=== PATIENT | male | born 1960 | race Caucasian/White ===

== ENCOUNTER 2020-05-22 14:14 | Outpatient (CLI) | payer SELFPAY | END 2020-05-22 14:15 | disposition home or self-care (01) | LOC: COV 14:14 | PROVIDERS: ATTEND Family Medicine | DX: R53.83 Other fatigue (principal); R68.83 Chills (without fever); R19.7 Diarrhea, unspecified; R11.0 Nausea; Z20.828 Contact with and (suspected) exposure to other viral communicable diseases ==

== ENCOUNTER 2020-10-17 13:44 | Inpatient (IN) | payer MEDICAID ==
[2020-10-17 14:35] LABS: BASOPHILS # (AUTO) 0.1 10^3/uL (0.0-0.1); BASOPHILS % (AUTO) 0.4 %; EOSINOPHILS # (AUTO) 0.1 10^3/uL (0.0-0.7); EOSINOPHILS % (AUTO) 0.4 %; HGB - HEMOGLOBIN 11.7 g/dL (14.0-18.0); LYMPHOCYTES # (AUTO) 1.2 10^3/uL (1.5-3.5); LYMPHOCYTES % (AUTO) 7.4 %; MEAN CORPUSCULAR HEMOGLOBIN 36.6 pg (27.0-31.0); MEAN CORPUSCULAR HGB CONC 32.6 g/dL (32.0-36.0); MEAN CORPUSCULAR VOLUME 112.2 fL (80.0-94.0); MEAN PLATELET VOLUME 11.5 fL (7.4-11.4); MONOCYTES # (AUTO) 1.5 10^3/uL (0.0-1.0); MONOCYTES % (AUTO) 9.2 %; NEUTROPHILS # (AUTO) 13.1 10^3/uL (1.5-6.6); NEUTROPHILS % (AUTO) 81.9 %; PLT - PLATELET COUNT 263 10^3/uL (130-450); RED CELL DISTRIBUTION WIDTH 19.4 % (12.0-15.0)
[2020-10-17 14:50] LABS: PLATELET ESTIMATE, MANUAL NORMAL (130-450,000) (NORMAL); PLATELET MORPHOLOGY NORMAL APPEARANCE (NORMAL)
[2020-10-17 14:54] LABS: ALBUMIN 2.2 g/dL (3.2-5.5); ALBUMIN/GLOBULIN RATIO 0.4 (1.0-2.2); BILIRUBIN,TOTAL 10.8 mg/dL (0.2-1.0); CREATININE 0.6 mg/dL (0.6-1.2); TOTAL PROTEIN 7.1 g/dL (6.7-8.2)
[2020-10-17 14:56] LABS: INR 1.6 (0.8-1.2)
[2020-10-17 15:04] LABS: CALCIUM 12.6 mg/dL (8.5-10.3)
[2020-10-17] MEDS ORDERED: IOVERSOL 320 100 ML VIAL IVP ONE ×2 (15:38→15:52)
--- NOTE | 2020-10-17 16:19 | ED Physician Documentation ---
History of Present Illness - Stated complaint Stated Complaint: LEG SWELLING/WEAKNESS - Chief complaint Chief Complaint: General - History obtained from History obtained from: Patient - History of Present Illness Timing: How many weeks ago (4) - Additonal information Additional information: 60-year-old male indicates that he stopped drinking about a month ago and shortly after he began to develop some swelling to his abdomen swelling in his legs and jaundice. His family has convinced him to come to the department for evaluation.He indicates that he drank only a small amount and insisted his last alcohol intake was 2 days ago when it was 2 ounces.He does not usually go to the doctor has not had medications or surgeries.He has noted a firm mass in his ab domen but is nontender. He feels like it is another rib that is growing in place. Review of Systems Constitutional: denies: Fever, Chills, Myalgias Eyes: denies: Decreased vision Ears: denies: Ear pain Nose: denies: Rhinorrhea / runny nose, Congestion Throat: denies: Sore throat Cardiac: denies: Chest pain / pressure, Palpitations Respiratory: denies: Dyspnea, Cough GI: reports: Abdominal Swelling. denies: Constipation, Diarrhea : denies: Dysuria, Frequency Skin: denies: Rash Musculoskeletal: reports: Extremity swelling. denies: Neck pain, Back pain, Extremity pain Neurologic: denies: Generalized weakness, Focal weakness, Numbness PD PAST MEDICAL HISTORY - Past Medical History Past Medical History: Yes Cardiovascular: None Respiratory: Asthma Neuro: None Endocrine/Autoimmune: None GI: None : None HEENT: None Psych: None Musculoskeletal: None Derm: None - Past Surgical History Past Surgical History: No - Allergies Allergies/Adverse Reactions: Allergies Allergy/AdvReac Type Severity Reaction Status Date / Time No Known Drug Allergies Allergy Verified 10/17/20 13:48 - Social History Does the pt smoke?: No Smoking Status: Never smoker Does the pt drink ETOH?: Yes Does the pt have substance abuse?: No - Immunizations Immunizations are current?: Yes - POLST Patient has POLST: No PD ED PE NORMAL - Vitals Vital signs reviewed: Yes (normal ) - General General: Alert and oriented X 3, No acute distress, Well developed/nourished - HEENT HEENT: Atraumatic, PERRL, EOMI, Other (obvious scleral icterus) - Neck Neck: Supple, no meningeal sign, No bony TTP - Cardiac Cardiac: RRR, No murmur - Respiratory Respiratory: No respiratory distress, Clear bilaterally - Abdomen Abdomen: Normal bowel sounds, Soft, Non tender, Other (There is a firm palpable mass more than 1 handbreadth below the costal margin on the right side it really does feel like an extra rib there but obviously is the patient's firm liver.There is ascites present there is not a caput present.) - Back Back: No spinal TTP, Other (There is some tenderness to the right flank ) - Derm Derm: Normal color, Warm and dry, No rash - Extremities Extremities: No deformity, Other (doughy pitting edema is present bilaterally ) - Neuro Neuro: Alert and oriented X 3, director of recruitment 2-12 intact, No motor deficit, No sensory deficit, Normal speech Eye Opening: Spontaneous Motor: Obeys Commands Verbal: Oriented GCS Score: 15 - Psych Psych: Normal mood, Normal affect Results - Vitals Vitals: Vital Signs - 24 hr 10/17/20 10/17/20 10/17/20 13:48 14:16 16:11 Temperature 36.4 C L 36.6 C 36.7 C Heart Rate 100 94 Respiratory 18 21 Rate Blood Pressure 126/75 109/66 O2 Saturation 99 98 10/17/20 10/17/20 10/17/20 17:20 17:55 18:42 Temperature Heart Rate 96 93 91 Respiratory 16 18 18 Rate Blood Pressure 104/74 123/77 106/74 O2 Saturation 98 96 98 Oxygen O2 Source Room air - Labs Labs: Laboratory Tests 10/17/20 10/17/20 10/17/20 13:44 14:20 14:20 WBC 16.0 H RBC 3.20 L Hgb 11.7 L Hct 35.9 L MCV 112.2 H MCH 36.6 H MCHC 32.6 RDW 19.4 H Plt Count 263 MPV 11.5 H Neut # (Auto) 13.1 H Lymph # (Auto) 1.2 L Winkler # (Auto) 1.5 H Eos # (Auto) 0.1 Baso # (Auto) 0.1 Absolute Nucleated RBC 0.00 Nucleated RBC % 0.0 Manual Slide Review Indicated Platelet Estimate NORMAL (130-450,000) Platelet Morphology NORMAL APPEARANCE RBC Morph Micro Appear 1+ TARGET CELLS PT INR Sodium 132 L Potassium 4.0 Chloride 98 L Carbon Dioxide 24 Anion Gap 10.0 BUN 21 H Creatinine 0.6 Estimated GFR (MDRD) 137 Glucose 100 Calcium 12.6 H* Total Bilirubin 10.8 H AST 171 H ALT 94 H Alkaline Phosphatase 352 H Ammonia 41.3 H Total Protein 7.1 Albumin 2.2 L Globulin 4.9 H Albumin/Globulin Ratio 0.4 L Lipase 20 L Urine Color Urine Clarity Urine pH Ur Specific [place] Urine Protein Urine Glucose (UA) Urine Ketones Urine Occult Blood Urine Nitrite Urine Bilirubin Urine Urobilinogen Ur Leukocyte Esterase Ur Microscopic Review Urine Culture Comments Ethyl Alcohol 10/17/20 10/17/20 10/17/20 14:20 14:20 14:20 WBC RBC Hgb Hct MCV MCH MCHC RDW Plt Count MPV Neut # (Auto) Lymph # (Auto) Winkler # (Auto) Eos # (Auto) Baso # (Auto) Absolute Nucleated RBC Nucleated RBC % Manual Slide Review Platelet Estimate Platelet Morphology RBC Morph Micro Appear PT 17.0 H INR 1.6 H Sodium Potassium Chloride Carbon Dioxide Anion Gap BUN Creatinine Estimated GFR (MDRD) Glucose Calcium Total Bilirubin AST ALT Alkaline Phosphatase Ammonia Total Protein Albumin Globulin Albumin/Globulin Ratio Lipase Urine Color DARK YELLOW Urine Clarity CLEAR Urine pH 5.5 Ur Specific [place] 1.010 Urine Protein NEGATIVE Urine Glucose (UA) NEGATIVE Urine Ketones NEGATIVE Urine Occult Blood NEGATIVE Urine Nitrite NEGATIVE Urine Bilirubin LARGE H Urine Urobilinogen 0.2 (NORMAL) Ur Leukocyte Esterase NEGATIVE Ur Microscopic Review NOT INDICATED Urine Culture Comments NOT INDICATED Ethyl Alcohol < 5.0 - Rads (name of study) CT ab pel with Radiology: Final report received, EMP read indepedently, See rad report PD MEDICAL DECISION MAKING - ED course Complexity details: reviewed results, re-evaluated patient, considered differential, d/w patient ED course: 60-year-old male presents with jaundice abdominal swelling and lower extremity edema. We initially assumed this was related to alcoholic cirrhosis. The patient's drinking history is not consistent with cirrhosis. 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 There is marked heterogeneity to the liver and compression of the inferior vena cava and no evidence of excessive pressure to the spleen or varices. His calcium is elevated at 12.6 and he will need hydration to improve this. In retrospect the patient indicates he has been having some problem with defecation and urination for more than a year. Dr. Christiano Dowell is consulted in the case and will except the patient for hydration and ultimate disposition. Oncology at [facility] in [place] is consulted in the case. Dr. Forbes recommends trying to obtain a tissue specimen and a follow-up with the MAC clinic here at [facility]. He also recommended early involvement of palliative care. He did indicate there is little that would be done at [place] if he was transferred there would be any different than what we would do here. He does not at this point need a biliary stent and he does not need therapeutic paracentesis. Departure - Departure Disposition: ED Place in Observation Clinical Impression: Hypercalcemia of malignancy, Dehydration, Rectal carcinoma, Liver masses Condition: Fair
--- NOTE | 2020-10-17 16:28 | CT Report ---
PROCEDURE: Abdomen/Pelvis W INDICATIONS: acites, large firm liver in yellow person CONTRAST: IV CONTRAST: Optiray 320 ml: 100 PO CONTRAST: *NO PO CONTRAST TECHNIQUE: After the administration of nonionic contrast, 5 mm thick sections acquired from the diaphragms to th e symphysis. 5 mm thick coronal and sagittal reformats were acquired. For radiation dose reduction, the following was used: automated exposure control, adjustment of mA and/or kV according to patient size. COMPARISON: None. FINDINGS: Image quality: Excellent. ABDOMEN: Lung bases: Lung bases are abnormal, with mild basilar atelectasis on the right associated with asym metric mild elevation of the right hemidiaphragm. There are, however, multiple pulmonary nodules pres ent suggestive of metastatic disease ranging in size from 3 mm to 1.1 cm. At least 8 nodules are pres ent.. Heart size is normal. Solid organs: Liver is enlarged in size measuring almost 25 cm craniocaudad. It is prominently abnor mal in enhancement with scattered areas of malignant appearing low attenuation with mass effect, scat tered within all hepatic segments, the largest which is located within the right hepatic lobe measuri ng up to. Gallbladder is compressed, but shows no definite acute disease. 11 cm in maximal dimension . Biliary system is non dilated. Pancreas enhances normally. No adrenal nodules. Kidneys demonstr ate normal size and enhancement, without hydronephrosis. The spleen is not enlarged. Peritoneum and bowel: Bowel loops demonstrate normal wall thickness and caliber. No free air. The re is moderate ascites, intraperitoneal mild enhancement and thickening. The appearance raises concer n for peritoneal carcinomatosis. Anasarca however could produce a similar appearance and no definite discrete peritoneal enhancing mass is found. Nodes and vessels: No retroperitoneal or mesenteric adenopathy by size criteria. Aorta and inferior vena cava are normal in size. Miscellaneous: No ventral hernias. PELVIS: Genitourinary: Bladder wall thickness is normal. Miscellaneous: No inguinal hernias or adenopathy. There is abnormal rectal wall thickening, concentr ically just above the anus and then eccentrically along the left lateral and posterolateral rectal wa ll, over a craniocaudad length of approximately 4 cm, with the maximal AP and transverse dimensions t hickness of rectal wall thickening up to 2 cm. Of the eccentric involvement is best seen on CT series 3 image 98. More inferiorly on image 100 a more concentric involvement appears present. Normal recta l wall thickness can be seen on image 91, and above. The area of rectal wall thickening is abnormally hyperenhancing. Bones: No suspicious bony lesions. No vertebral body compression fractures. IMPRESSION: 1. Pulmonary nodules ranging in size from 3 mm to 1. One centimeters are present at the small portion of the lung bases included on this study, highly suspicious for representing metastatic disease. 2. Extensive hepatic metastatic disease is suspected, with the dominant mass in the right hepatic lob e measuring up to 11 cm, but there is also multifocal low-attenuation, heterogeneous, scattered throu ghout the liver parenchyma elsewhere. Hepatomegaly is present as a result, but the splenomegaly that would be expected in the setting of cirrhosis and extensive hepatoma is not present. Therefore hepati c metastatic disease is considered most likely the cause of this appearance. 3. There is eccentric hyperenhancing thickening of the rectal wall inferiorly and its middle third, a nd then above that level the rectal wall thickness and sigmoid bowel thickness appears normal. Primar y rectal carcinoma is likely present inferiorly within the posterior and left lateral wall and possib ly concentric just above the anal level. No adjacent adenopathy found. 4. Ascites is present, possible generalized peritoneal carcinomatosis. However, hepatic insufficiency and anasarca could produce the increased radiodensity along the peritoneal margins discussed above. Definite omental thickening is not seen. Reviewed by: iMke Hoyos MD on 10/17/2020 4:27 PM PST Approved by: Mike Hoyos MD on 10/17/2020 4:27 PM PST Station ID: [id number]
[2020-10-17 17:28] LABS: GLUCOSE, URINE (UA) NEGATIVE (NEGATIVE); KETONES,URINE (UA) NEGATIVE (NEGATIVE); LEUKOCYTE ESTERASE, URINE NEGATIVE (NEGATIVE); NITRITE,URINE NEGATIVE (NEGATIVE); OCCULT BLOOD,URINE NEGATIVE (NEGATIVE); PH,URINE 5.5 PH (5.0-7.5); PROTEIN,URINE NEGATIVE (NEGATIVE); UROBILINOGEN,URINE 0.2 (NORMAL) E.U./dL (NORMAL)
[2020-10-17 17:33] LABS: BILIRUBIN,URINE LARGE (NEGATIVE); CLARITY,URINE CLEAR (CLEAR); ICTOTEST,URINE POSITIVE
[2020-10-17] MEDS ORDERED: SODIUM CHLORIDE 0.9% 1,000 ML IV STA (17:36)
[2020-10-17] MEDS ORDERED: KETOROLAC 30 MG/ML VIAL IVP STA (17:41)
[2020-10-17] MEDS ORDERED: ONDANSETRON ODT 4 MG TABLET TL PRN (18:22)
--- NOTE | 2020-10-17 19:27 | HISTORY & PHYSICAL EXAMINATION ---
Chief Complaint - Chief Complaint Chief Complaint: Jaundice, weakness, lower extremity edema, abdominal pain History of Present Illness - Admitted From Admitted From:: [facility] ED - History Obtained From Records Reviewed: yes History obtained from: patient - History of Present Illness HPI Comment/Other: Patient is a 60-year-old male with medical history significant for asthma only who presented to the ED at the request of a sibling because it was noted that he has been jaundiced for the past 2 weeks. Upon presentation he also complained o f increased weakness, leg swelling and abdominal pain especially on the right side. He also reports weight loss but is unable to quantify or give a duration. He reports a history of night sweats 2 months ago. He has not been feeling well for the past year and has also experienced difficulty with bowel movements. Work-up in the ED included a CT of the abdomen pelvis which showed: Pulmonary nodules ranging in size from 3mm to 1 cm and were highly suspicious for metastatic disease. There was extensive hepatic metastasis suspected with a dominant mass in the right hepatic lobe measuring up to 11 cm. There was also multifocal low- attenuation, heterogeneous, scattered throughout the liver parenchyma. Hepatomegaly was also noted. There is eccentric hyperenhancing thickening of the rectal wall inferiorly and its middle third. Primary rectal carcinoma was suspected. Ascites was present as well as possible generalized peritoneal carcinomatosis. Furthermore the patient was noted to have a calcium level of 12.6, Total bilirubin of 10.8 and WBC of 16. At bedside the patient was resting comfortably but appears very weak. He denies chest pain but reports some dyspnea and abdominal pain. He mainly indicates pain in the right upper quadrant and epigastric area. He reports nausea but no vomiting he denies fever or chills. He has significant lower extremity edema and is significantly jaundiced. Patient was presented for admission primarily to address his hypercalcemia. History - Past Medical History Cardiovascular: reports: None Respiratory: reports: Asthma Neuro: reports: None Endocrine/Autoimmune: reports: None GI: reports: None : reports: None HEENT: reports: None Psych: reports: None Musculoskeletal: reports: None Derm: reports: None MRSA Hx?: No - Past Surgical History HEENT: reports: Other (right ear. Unspecified. During infancy) - Family & Social History Family History Comment/Other: His mother from colon cancer. His father had history of pulmonary fibrosis Social History Notes: Lives at home with his brother. His sister lives nearby on the same property. He has a history 2 packs/day x 15 years. However he quit smoking. He drinks whiskey daily and also uses marijuana - POLST Patient has POLST: No POLST Status: Full Code Meds/Allgy - Allergies Allergies/Adverse Reactions: Allergies Allergy/AdvReac Type Severity Reaction Status Date / Time No Known Drug Allergies Allergy Verified 10/17/20 13:48 Review of Systems - Constitutional Constitutional: reports: Fatigue, Weakness, Night sweats, Weight loss. denies: Fever, Chills - Eyes Eyes: denies: Pain, Dipolpia - Ears, Nose & Throat Ears, Nose & Throat: denies: Ear pain, Vertigo - Cardiovascular Cariovascular: reports: Edema. denies: Irregular heart rate, Palpitations, Chest pain, Lightheadedness, Syncope - Respiratory Respiratory: reports: SOB at rest. denies: Sputum production, Wheezing - Gastrointestinal Gastrointestinal: reports: Abdominal pain, Abdominal distention, Change in bowel habits, Nausea. denies: Vomiting - Genitourinary Genitourinary: denies: Dysuria, Frequency, Urgency, Hematuria, Incontinence - Musculoskeletal Musculoskeletal: denies: Muscle pain, Back pain, Muscle aches - Integumentary Integumentary: denies: Rash, Pruritis, Lesions - Neurological Neurological: reports: General weakness. denies: Focal weakness, Headache, Dizziness - Psychiatric Psychiatric: denies: Depression, Anxiety - Hematologic/Lymphatic Hematologic/Lymphatic: denies: Anemia, Bruising, Petechiae Prior Level of Functionality: Patient is normally independent of activities of daily living however he has become increasingly weak lately. Exam - Vital Signs Vital Signs: Vital Signs x48h Temp Pulse Resp BP Pulse Ox 10/17/20 18:42 91 18 106/74 98 10/17/20 17:55 93 18 123/77 96 10/17/20 17:20 96 16 104/74 98 10/17/20 16:11 36.7 C 94 21 109/66 98 10/17/20 14:16 36.6 C 10/17/20 13:48 36.4 C L 100 18 126/75 99 - Physical Exam General Appearance: positive: Alert, Mild distress Eyes Bilateral: positive: PERRL, EOMI ENT: positive: No signs of dehydration Neck: positive: No JVD, Trachea midline Respiratory: positive: Chest non-tender, No respiratory distress, Breath sounds nml. negative: Wheezes, Rales, Rhonchi Cardiovascular: positive: Regular rate & rhythm, No murmur Abdomen: positive: Hepatomegaly, Other (Abdominal distention. Mild to moderate abdominal tenderness especially in the right upper quadrant.) Back: positive: Nml inspection Skin: positive: Other (Jaundice) Extremities: positive: Non-tender, Full ROM, Pedal edema (3+ lower extremity edema) Neurologic/Psychiatric: positive: Oriented x3, Mood/affect nml Conclusion/Plan - Problem List (1) Hypercalcemia of malignancy Conclusion/Plan: Patient received 1 L of IV hydration with normal saline in the ED. Continuing fluids at 150 mils an hour. Will recheck with a.m. labs. Parathyroid hormone, PTH related protein and vitamin D levels are pending. (2) Rectal carcinoma Conclusion/Plan: With likely metastasis to the liver, lungs and peritoneal carcinomatosis with ascites. Patient will need to follow-up with oncology outpatient. Patient will be seen by Dr. Foreman with general surgery tomorrow for colonoscopy (3) Liver masses Conclusion/Plan: Suspected rectal cancer as primary. Patient will follow up with oncology outpatient. I explained the extent and seriousness of his disease which currently involves his liver, lungs and peritoneum. (4) Leukocytosis Conclusion/Plan: Reactive versus infectious. We will recheck with a.m. labs. - Lab Results Fish Bones: 10/17/20 14:20 10/17/20 14:20 Core Measures - Anticipated LOS I expect patient to be DC'd or transferred within 96 hours.: Yes - DVT/VTE - Prophylaxis VTE/DVT Device ordered at admit?: Yes
[2020-10-17] MEDS: SODIUM CHLORIDE 0.9% 1,000 ML IV SCH (20:25)
--- NOTE | 2020-10-17 20:25 | CONSULTATION NOTE ---
Referring Provider Name of Referring Provider:: Dr. Christiano Fortune Consult Date: 10/18/20 Chief Complaint - Chief Complaint Chief Complaint: Rectal mass with concerns for metastatic disease History of Present Illness - Admitted From Admitted From:: Home - History Obtained From Records Reviewed: EMR History obtained from: Patient Exam Limitations: None - History of Present Illness HPI Comment/Other: 60-year-old male with no significant past medical history denies history of stroke, heart attack, pulmonary embolism, who presents with progressive jaundice, abdominal distention, and change in bowel movements over several months. Patient has no prior surgical history neither as it relates to his abdomen or otherwise. He has never undergone colonoscopic evaluation or screening. Patient reports a family history of colon cancer in his mother but has not un dergone high risk screening himself. He has no children, he has siblings with whom he is only recently resumed contact. He claims daily bowel movements with difficulty. This has been progressive for several months. He was admitted through the emergency room after discussions with hospitalist; we spoke about possible transfer however it was decided to progress through treatment of his electrolyte abnormalities and consideration for tissue biopsy towards oncology referral. Thus surgical consultation was obtained. Patient denies any obstructive symptoms acutely. History - Past Medical History Cardiovascular: reports: None Respiratory: reports: Asthma Neuro: reports: None Endocrine/Autoimmune: reports: None GI: reports: None : reports: None HEENT: reports: None Psych: reports: None Musculoskeletal: reports: None Derm: reports: None MRSA Hx?: No - POLST Patient has POLST: No Meds/Allgy - Allergies Allergies/Adverse Reactions: Allergies Allergy/AdvReac Type Severity Reaction Status Date / Time No Known Drug Allergies Allergy Verified 10/17/20 13:48 Review of Systems - Constitutional Constitutional: reports: Fatigue, Weakness - Gastrointestinal Gastrointestinal: reports: Abdominal pain, Abdominal distention, Change in bowel habits, Rectal bleeding, Black stools, Nausea - Musculoskeletal Musculoskeletal: reports: Muscle pain - Integumentary Integumentary: reports: Other (jaundice) - Psychiatric Psychiatric: reports: Depression - All Other Systems All Other Systems: reports: Reviewed and negative Exam - Vital Signs Reviewed Vital Signs: Yes Vital Signs: Vital Signs x48h Temp Pulse Pulse Resp BP BP Pulse Ox 10/17/20 19:32 90 16 108/62 97 10/17/20 18:42 91 18 106/74 98 10/17/20 17:55 93 18 123/77 96 10/17/20 17:20 96 16 104/74 98 10/17/20 16:11 36.7 C 94 21 109/66 98 10/17/20 14:16 36.6 C 10/17/20 13:48 36.4 C L 100 18 126/75 99 - Physical Exam General Appearance: positive: No acute distress, Alert, Mild distress Eyes Bilateral: positive: Normal inspection, PERRL, EOMI, Other (Positive scleral icterus). negative: No scleral icterus ENT: positive: ENT inspection nml Neck: positive: Nml inspection Respiratory: positive: Chest non-tender, No respiratory distress, Breath sounds nml. negative: Wheezes, Rales, Rhonchi Cardiovascular: positive: Regular rate & rhythm Abdomen: positive: Tenderness, Other (Grossly distended with no significant tenderness to palpation positive fluid wave. No rebound. No guarding.) Skin: positive: Other (Jaundice) Extremities: positive: Non-tender, Full ROM, Nml appearance Neurologic/Psychiatric: positive: Oriented x3, CN's nml (2-12), Motor nml, Sensation nml Conclusion and Plan - Lab Results Laboratory Results 10/17/20 14:20: Urine Color DARK YELLOW, Urine Clarity CLEAR, Urine pH 5.5, Ur Specific [place] 1.010, Urine Protein NEGATIVE, Urine Glucose (UA) NEGATIVE, Urine Ketones NEGATIVE, Urine Occult Blood NEGATIVE, Urine Nitrite NEGATIVE, Urine Bilirubin LARGE H, Urine Urobilinogen 0.2 (NORMAL), Ur Leukocyte Esterase NEGATIVE, Ur Microscopic Review NOT INDICATED, Urine Culture Comments NOT INDICATED 10/17/20 14:20: Ethyl Alcohol < 5.0 10/17/20 14:20: PT 17.0 H, INR 1.6 H 10/17/20 14:20: Sodium 132 L, Potassium 4.0, Chloride 98 L, Carbon Dioxide 24, Anion Gap 10.0, BUN 21 H, Creatinine 0.6, Estimated GFR (MDRD) 137, Glucose 100, Calcium 12.6 H*, Total Bilirubin 10.8 H, AST 171 H, ALT 94 H, Alkaline Phosphatase 352 H, Total Protein 7.1, Albumin 2.2 L, Globulin 4.9 H, Albumin/Globulin Ratio 0.4 L, Lipase 20 L 10/17/20 14:20: WBC 16.0 H, RBC 3.20 L, Hgb 11.7 L, Hct 35.9 L, MCV 112.2 H, MCH 36.6 H, MCHC 32.6, RDW 19.4 H, Plt Count 263, MPV 11.5 H, Neut # (Auto) 13.1 H, Lymph # (Auto) 1.2 L, [place] # (Auto) 1.5 H, Eos # (Auto) 0.1, Baso # (Auto) 0.1, Absolute Nucleated RBC 0.00, Nucleated RBC % 0.0, Manual Slide Review Indicated, Platelet Estimate NORMAL (130-450,000), Platelet Morphology NORMAL APPEARANCE, RBC Morph Micro Appear 1+ TARGET CELLS 10/17/20 13:44: Ammonia 41.3 H - Diagnostic Imaging Results Diagnostic Imaging Results: positive: Final report reviewed Diagnostic Imaging Results Comments: CT abdomen pelvis impression: 1. Pulmonary nodules ranging in size from 3 mm to 1. 1 cm are present at the small portion of the lung bases including on the study, highly suspicious for representing metastatic disease. 2. Extensive hepatic metastases suspected with a dominant mass in the right hepatic lobe measuring up to 11 cm, but there is also multifocal low- attenuation, heterogeneous, scattered throughout the liver primary parenchyma elsewhere. Hepatomegaly is present as a result but the splenomegaly that would be expected in the setting of cirrhosis and extensive hepatoma is not present. Therefore hepatic metastatic disease is considered most likely the cause of this appearance. 3. There is an eccentric hyperenhancing thickening of the rectum inferiorly and its middle third and then above that level of the rectum wall thickness and sigmoid bowel thickness appears normal. Primary rectal carcinoma is likely present inferiorly within the posterior and left lateral wall and possibly concentric just above the anal canal no additional or adjacent adenopathy is found. 4. Ascites is present, possible generalized peritoneal carcinomatosis. However hepatic insufficiency and anasarca could produce the increased radiodensity jinny ng the peritoneal margins discussed above. Definite omental thickening is not seen.Rectal mass with concerns for metastatic disease - Diagnosis Diagnosis: 1. Rectal mass, concerning for malignancy. 2. Hepatic masses, concerning for metastases. 3. Pulmonary nodules, concerning for metastases. 4. Ascites with peritoneal thickening concerning for carcinomatosis. 5. Liver failure, suspected obstruction - Plan Plan: 60-year-old male with past history of alcohol use and possible abuse who presents with jaundice and ascites however imaging not consistent with hepatoma/hepatocellular carcinoma absent associated splenomegaly and portal venous hypertension. Multiple areas concerning for metastatic disease both in the long, liver and omentum. Likely primary rectal cancer. Significant electrolyte abnormalities. Possible candidate for palliative chemotherapy. Will necessitate tissue diagnosis to that end. Discussed with hospitalist possible transfer however given discussion with oncology and [place] [facility] [place] proceed with tissue biopsy by flexible sigmoidoscopy to assist with guiding patient's oncologic care. Risks of colonoscopy discussed with patient. Questions answered informed consent obtained. We will perform flexible sigmoidoscopy with tissue biopsy.
[2020-10-17 21:21] LABS: C. PNEUMONIAE- RESP PCR PANEL NOT DETECTED
[2020-10-18] MEDS: MORPHINE 2 MG/ML CARPUJECT IVP PRN ×5 (00:19→18:07)
[2020-10-18] MEDS: SODIUM CHLORIDE FLUSH 0.9% 10 ML SYRINGE IVP SCH ×3 (00:23→17:58)
[2020-10-18] MEDS: SODIUM CHLORIDE 0.9% 1,000 ML IV SCH ×4 (01:39→22:48)
[2020-10-18] MEDS: SODIUM CHLORIDE FLUSH 0.9% 10 ML SYRINGE IVP PRN (01:48)
[2020-10-18 05:00] LABS: BASOPHILS # (AUTO) 0.1 10^3/uL (0.0-0.1); BASOPHILS % (AUTO) 0.5 %; EOSINOPHILS # (AUTO) 0.1 10^3/uL (0.0-0.7); EOSINOPHILS % (AUTO) 0.8 %; HGB - HEMOGLOBIN 10.5 g/dL (14.0-18.0); LYMPHOCYTES # (AUTO) 1.5 10^3/uL (1.5-3.5); LYMPHOCYTES % (AUTO) 10.2 %; MEAN CORPUSCULAR HEMOGLOBIN 36.7 pg (27.0-31.0); MEAN CORPUSCULAR HGB CONC 32.8 g/dL (32.0-36.0); MEAN CORPUSCULAR VOLUME 111.9 fL (80.0-94.0); MEAN PLATELET VOLUME 11.7 fL (7.4-11.4); MONOCYTES # (AUTO) 1.4 10^3/uL (0.0-1.0); MONOCYTES % (AUTO) 9.4 %; NEUTROPHILS # (AUTO) 11.6 10^3/uL (1.5-6.6); NEUTROPHILS % (AUTO) 78.6 %; PLT - PLATELET COUNT 254 10^3/uL (130-450); RED BLOOD COUNT 2.86 10^6/uL (4.70-6.10); RED CELL DISTRIBUTION WIDTH 19.9 % (12.0-15.0); WHITE BLOOD COUNT 14.7 x10^3/uL (4.8-10.8)
[2020-10-18 05:22] LABS: ALBUMIN 1.9 g/dL (3.2-5.5); BILIRUBIN,TOTAL 10.2 mg/dL (0.2-1.0); CREATININE 0.5 mg/dL (0.6-1.2); MAGNESIUM 2.2 mg/dL (1.7-2.8); TOTAL PROTEIN 6.2 g/dL (6.7-8.2)
[2020-10-18 05:48] LABS: CALCIUM 12.2 mg/dL (8.5-10.3)
--- NOTE | 2020-10-18 07:19 | PROVIDER PROGRESS NOTE ---
Subjective - Prog Note Date Prog Note Date: 10/18/20 - Subjective Subjective: He currently denies having any pain. He still complains of lower extremity edema although he feels it is slightly improved today. He understands the concern we have for suspected rectal cancer with metastasis to his liver. He is looking towards making an official diagnosis and seeing what his treatment options are. Denies dyspnea or chest pain. Current Medications - Current Medications Current Medications: Active Medications Enoxaparin Sodium (Enoxaparin 40 Mg/0.4 Ml Syringe) 40 mg SUBQ DAILY [facility] [place] Last Admin: 10/18/20 09:45 Dose: 40 mg Documented by: Sodium Chloride (Normal Saline 0.9%) 1,000 mls @ 150 mls/hr IV .Q6H40M [facility] [place] Last Infusion: 10/18/20 09:30 Dose: 150 mls/hr Documented by: Ibuprofen (Ibuprofen 400 Mg Tablet) 400 mg PO Q4HR PRN PRN Reason: Pain 1 to 4 Morphine Sulfate (Morphine 2 Mg/Ml Carpuject) 1 mg IVP Q2HR PRN PRN Reason: Pain 8 to 10 Last Admin: 10/18/20 09:52 Dose: 1 mg Documented by: Ondansetron HCl (Ondansetron Odt 4 Mg Tablet) 4 mg TL Q6HR PRN PRN Reason: Nausea / Vomiting Polyethylene Glycol (Polyethylene Glycol 3350 17 Gm Packet) 17 gm PO DAILY [facility] [place] Last Admin: 10/18/20 09:46 Dose: Not Given Documented by: Sodium Chloride (Sodium Chloride Flush 0.9% 10 Ml Syringe) 10 ml IVP PRN PRN PRN Reason: NEEDED PER PROVIDER ORDERS Last Admin: 10/18/20 01:48 Dose: 10 ml Documented by: Sodium Chloride (Sodium Chloride Flush 0.9% 10 Ml Syringe) 10 ml IVP 0100,0900,1700 [facility] [place] Last Admin: 10/18/20 09:46 Dose: 10 ml Documented by: Objective - Vital Signs/Intake & Output Reviewed Vital Signs: Yes Vital Signs: Vital Signs x48h Temp Pulse Resp BP Pulse Ox 10/18/20 06:49 36.5 C 10/18/20 04:23 36.7 C 92 18 112/66 95 10/18/20 00:30 36.3 C L 88 18 111/65 96 Intake & Output: Intake & Output 10/15/20 10/16/20 10/17/20 10/18/20 23:59 23:59 23:59 23:59 Intake Total 843 1000 Balance 843 1000 - Objective General Appearance: positive: No acute distress, Alert Eyes Bilateral: positive: Normal inspection, Other (Scleral icterus.) ENT: positive: ENT inspection nml Neck: positive: Nml inspection Respiratory: positive: No respiratory distress. negative: Wheezes, Rales Cardiovascular: positive: Regular rate & rhythm, No murmur. negative: Tachycardia, Bradycardia Abdomen: positive: Non-tender, Hepatomegaly. negative: No distention (Abdomen is distended.), Tenderness, Guarding, Rebound, Splenomegaly Skin: positive: Warm, Dry, Other (Jaundiced.) Extremities: positive: Full ROM, Pedal edema (He has +2 pitting edema in the bilateral lower extremities). negative: Joint swelling, Richardson's sign/cords Neurologic/Psychiatric: positive: Oriented x3, Motor nml. negative: Disoriented to person, Disoriented to place, Disoriented to time - Lab Results Fish Bones: 10/18/20 04:27 10/18/20 04:27 Other Labs: Lab Results x24hrs 10/18/20 10/18/20 10/18/20 Range/Units 04:27 04:27 04:27 WBC 14.7 H (4.8-10.8) x10^3/uL RBC 2.86 L (4.70-6.10) 10^6/uL Hgb 10.5 L (14.0-18.0) g/dL Hct 32.0 L (42.0-52.0) % MCV 111.9 H (80.0-94.0) fL MCH 36.7 H (27.0-31.0) pg MCHC 32.8 (32.0-36.0) g/dL RDW 19.9 H (12.0-15.0) % Plt Count 254 (130-450) 10^3/uL MPV 11.7 H (7.4-11.4) fL Neut # (Auto) 11.6 H (1.5-6.6) 10^3/uL Lymph # (Auto) 1.5 (1.5-3.5) 10^3/uL [place] # (Auto) 1.4 H (0.0-1.0) 10^3/uL Eos # (Auto) 0.1 (0.0-0.7) 10^3/uL Baso # (Auto) 0.1 (0.0-0.1) 10^3/uL Absolute Nucleated RBC 0.00 x10^3/uL Nucleated RBC % 0.0 /100WBC Manual Slide Review Platelet Estimate (NORMAL) Platelet Morphology (NORMAL) RBC Morph Micro Appear (NORMAL) PT (9.9-12.6) secs INR (0.8-1.2) Sodium 136 (135-145) mmol/L Potassium 3.9 (3.5-5.0) mmol/L Chloride 104 (101-111) mmol/L Carbon Dioxide 21 (21-32) mmol/L Anion Gap 11.0 (6-13) BUN 22 H (6-20) mg/dL Creatinine 0.5 L (0.6-1.2) mg/dL Estimated GFR (MDRD) 169 (>89) Glucose 87 (70-100) mg/dL Calcium 12.2 H* (8.5-10.3) mg/dL Magnesium 2.2 (1.7-2.8) mg/dL Total Bilirubin 10.2 H (0.2-1.0) mg/dL Direct Bilirubin 6.0 H (0.1-0.5) mg/dL AST 142 H (10-42) IU/L ALT 80 H (10-60) IU/L Alkaline Phosphatase 276 H (42-121) IU/L Ammonia (7-35) umol/L Total Protein 6.2 L (6.7-8.2) g/dL Albumin 1.9 L (3.2-5.5) g/dL Globulin 4.3 H (2.1-4.2) g/dL Albumin/Globulin Ratio (1.0-2.2) Lipase (22-51) U/L PTH Intact 5 L (12-88) pg/mL Urine Color Urine Clarity (CLEAR) Urine pH (5.0-7.5) PH Ur Specific [place] (1.002-1.030) Urine Protein (NEGATIVE) mg/dL Urine Glucose (UA) (NEGATIVE) mg/dL Urine Ketones (NEGATIVE) mg/dL Urine Occult Blood (NEGATIVE) Urine Nitrite (NEGATIVE) Urine Bilirubin (NEGATIVE) Urine Urobilinogen (NORMAL) E.U./dL Ur Leukocyte Esterase (NEGATIVE) Ur Microscopic Review Urine Culture Comments Nasal Adenovirus (PCR) Nasal B. parapertussis DNA (PCR) Nasal Coronavir 229E PCR Nasal Coronavir HKU1 PCR Nasal Coronavir NL63 PCR Nasal Coronavir OC43 PCR Nasal Enterovir/Rhinovir PCR Nasal Influenza B PCR Nasal Influenza A PCR Nasal Parainfluen 1 PCR Nasal Parainfluen 2 PCR Nasal Parainfluen 3 PCR Nasal Parainfluen 4 PCR Nasal RSV (PCR) Nasal B.pertussis DNA PCR Nasal C.pneumoniae (PCR) Nam Human Metapneumo PCR Nasal M.pneumoniae (PCR) Nasal SARS-CoV-2 (PCR) Ethyl Alcohol mg/dL 10/17/20 10/17/20 10/17/20 Range/Units 20:20 14:20 14:20 WBC (4.8-10.8) x10^3/uL RBC (4.70-6.10) 10^6/uL Hgb (14.0-18.0) g/dL Hct (42.0-52.0) % MCV (80.0-94.0) fL MCH (27.0-31.0) pg MCHC (32.0-36.0) g/dL RDW (12.0-15.0) % Plt Count (130-450) 10^3/uL MPV (7.4-11.4) fL Neut # (Auto) (1.5-6.6) 10^3/uL Lymph # (Auto) (1.5-3.5) 10^3/uL [place] # (Auto) (0.0-1.0) 10^3/uL Eos # (Auto) (0.0-0.7) 10^3/uL Baso # (Auto) (0.0-0.1) 10^3/uL Absolute Nucleated RBC x10^3/uL Nucleated RBC % /100WBC Manual Slide Review Platelet Estimate (NORMAL) Platelet Morphology (NORMAL) RBC Morph Micro Appear (NORMAL) PT (9.9-12.6) secs INR (0.8-1.2) Sodium (135-145) mmol/L Potassium (3.5-5.0) mmol/L Chloride (101-111) mmol/L Carbon Dioxide (21-32) mmol/L Anion Gap (6-13) BUN (6-20) mg/dL Creatinine (0.6-1.2) mg/dL Estimated GFR (MDRD) (>89) Glucose (70-100) mg/dL Calcium (8.5-10.3) mg/dL Magnesium (1.7-2.8) mg/dL Total Bilirubin (0.2-1.0) mg/dL Direct Bilirubin (0.1-0.5) mg/dL AST (10-42) IU/L ALT (10-60) IU/L Alkaline Phosphatase (42-121) IU/L Ammonia (7-35) umol/L Total Protein (6.7-8.2) g/dL Albumin (3.2-5.5) g/dL Globulin (2.1-4.2) g/dL Albumin/Globulin Ratio (1.0-2.2) Lipase (22-51) U/L PTH Intact (12-88) pg/mL Urine Color DARK YELLOW Urine Clarity CLEAR (CLEAR) Urine pH 5.5 (5.0-7.5) PH Ur Specific [place] 1.010 (1.002-1.030) Urine Protein NEGATIVE (NEGATIVE) mg/dL Urine Glucose (UA) NEGATIVE (NEGATIVE) mg/dL Urine Ketones NEGATIVE (NEGATIVE) mg/dL Urine Occult Blood NEGATIVE (NEGATIVE) Urine Nitrite NEGATIVE (NEGATIVE) Urine Bilirubin LARGE H (NEGATIVE) Urine Urobilinogen 0.2 (NORMAL) (NORMAL) E.U./dL Ur Leukocyte Esterase NEGATIVE (NEGATIVE) Ur Microscopic Review NOT INDICATED Urine Culture Comments NOT INDICATED Nasal Adenovirus (PCR) NOT DETECTED Nasal B. parapertussis DNA (PCR) NOT DETECTED Nasal Coronavir 229E PCR NOT DETECTED Nasal Coronavir HKU1 PCR NOT DETECTED Nasal Coronavir NL63 PCR NOT DETECTED Nasal Coronavir OC43 PCR NOT DETECTED Nasal Enterovir/Rhinovir PCR NOT DETECTED Nasal Influenza B PCR NOT DETECTED Nasal Influenza A PCR NOT DETECTED Nasal Parainfluen 1 PCR NOT DETECTED Nasal Parainfluen 2 PCR NOT DETECTED Nasal Parainfluen 3 PCR NOT DETECTED Nasal Parainfluen 4 PCR NOT DETECTED Nasal RSV (PCR) NOT DETECTED Nasal B.pertussis DNA PCR NOT DETECTED Nasal C.pneumoniae (PCR) NOT DETECTED Nam Human Metapneumo PCR NOT DETECTED Nasal M.pneumoniae (PCR) NOT DETECTED Nasal SARS-CoV-2 (PCR) NOT DETECTED Ethyl Alcohol < 5.0 mg/dL 10/17/20 10/17/20 10/17/20 Range/Units 14:20 14:20 14:20 WBC 16.0 H (4.8-10.8) x10^3/uL RBC 3.20 L (4.70-6.10) 10^6/uL Hgb 11.7 L (14.0-18.0) g/dL Hct 35.9 L (42.0-52.0) % MCV 112.2 H (80.0-94.0) fL MCH 36.6 H (27.0-31.0) pg MCHC 32.6 (32.0-36.0) g/dL RDW 19.4 H (12.0-15.0) % Plt Count 263 (130-450) 10^3/uL MPV 11.5 H (7.4-11.4) fL Neut # (Auto) 13.1 H (1.5-6.6) 10^3/uL Lymph # (Auto) 1.2 L (1.5-3.5) 10^3/uL [place] # (Auto) 1.5 H (0.0-1.0) 10^3/uL Eos # (Auto) 0.1 (0.0-0.7) 10^3/uL Baso # (Auto) 0.1 (0.0-0.1) 10^3/uL Absolute Nucleated RBC 0.00 x10^3/uL Nucleated RBC % 0.0 /100WBC Manual Slide Review Indicated Platelet Estimate NORMAL (130-450,000) (NORMAL) Platelet Morphology NORMAL APPEARANCE (NORMAL) RBC Morph Micro Appear 1+ TARGET CELLS (NORMAL) PT 17.0 H (9.9-12.6) secs INR 1.6 H (0.8-1.2) Sodium 132 L (135-145) mmol/L Potassium 4.0 (3.5-5.0) mmol/L Chloride 98 L (101-111) mmol/L Carbon Dioxide 24 (21-32) mmol/L Anion Gap 10.0 (6-13) BUN 21 H (6-20) mg/dL Creatinine 0.6 (0.6-1.2) mg/dL Estimated GFR (MDRD) 137 (>89) Glucose 100 (70-100) mg/dL Calcium 12.6 H* (8.5-10.3) mg/dL Magnesium (1.7-2.8) mg/dL Total Bilirubin 10.8 H (0.2-1.0) mg/dL Direct Bilirubin (0.1-0.5) mg/dL AST 171 H (10-42) IU/L ALT 94 H (10-60) IU/L Alkaline Phosphatase 352 H (42-121) IU/L Ammonia (7-35) umol/L Total Protein 7.1 (6.7-8.2) g/dL Albumin 2.2 L (3.2-5.5) g/dL Globulin 4.9 H (2.1-4.2) g/dL Albumin/Globulin Ratio 0.4 L (1.0-2.2) Lipase 20 L (22-51) U/L PTH Intact (12-88) pg/mL Urine Color Urine Clarity (CLEAR) Urine pH (5.0-7.5) PH Ur Specific [place] (1.002-1.030) Urine Protein (NEGATIVE) mg/dL Urine Glucose (UA) (NEGATIVE) mg/dL Urine Ketones (NEGATIVE) mg/dL Urine Occult Blood (NEGATIVE) Urine Nitrite (NEGATIVE) Urine Bilirubin (NEGATIVE) Urine Urobilinogen (NORMAL) E.U./dL Ur Leukocyte Esterase (NEGATIVE) Ur Microscopic Review Urine Culture Comments Nasal Adenovirus (PCR) Nasal B. parapertussis DNA (PCR) Nasal Coronavir 229E PCR Nasal Coronavir HKU1 PCR Nasal Coronavir NL63 PCR Nasal Coronavir OC43 PCR Nasal Enterovir/Rhinovir PCR Nasal Influenza B PCR Nasal Influenza A PCR Nasal Parainfluen 1 PCR Nasal Parainfluen 2 PCR Nasal Parainfluen 3 PCR Nasal Parainfluen 4 PCR Nasal RSV (PCR) Nasal B.pertussis DNA PCR Nasal C.pneumoniae (PCR) Nam Human Metapneumo PCR Nasal M.pneumoniae (PCR) Nasal SARS-CoV-2 (PCR) Ethyl Alcohol mg/dL 10/17/20 Range/Units 13:44 WBC (4.8-10.8) x10^3/uL RBC (4.70-6.10) 10^6/uL Hgb (14.0-18.0) g/dL Hct (42.0-52.0) % MCV (80.0-94.0) fL MCH (27.0-31.0) pg MCHC (32.0-36.0) g/dL RDW (12.0-15.0) % Plt Count (130-450) 10^3/uL MPV (7.4-11.4) fL Neut # (Auto) (1.5-6.6) 10^3/uL Lymph # (Auto) (1.5-3.5) 10^3/uL [place] # (Auto) (0.0-1.0) 10^3/uL Eos # (Auto) (0.0-0.7) 10^3/uL Baso # (Auto) (0.0-0.1) 10^3/uL Absolute Nucleated RBC x10^3/uL Nucleated RBC % /100WBC Manual Slide Review Platelet Estimate (NORMAL) Platelet Morphology (NORMAL) RBC Morph Micro Appear (NORMAL) PT (9.9-12.6) secs INR (0.8-1.2) Sodium (135-145) mmol/L Potassium (3.5-5.0) mmol/L Chloride (101-111) mmol/L Carbon Dioxide (21-32) mmol/L Anion Gap (6-13) BUN (6-20) mg/dL Creatinine (0.6-1.2) mg/dL Estimated GFR (MDRD) (>89) Glucose (70-100) mg/dL Calcium (8.5-10.3) mg/dL Magnesium (1.7-2.8) mg/dL Total Bilirubin (0.2-1.0) mg/dL Direct Bilirubin (0.1-0.5) mg/dL AST (10-42) IU/L ALT (10-60) IU/L Alkaline Phosphatase (42-121) IU/L Ammonia 41.3 H (7-35) umol/L Total Protein (6.7-8.2) g/dL Albumin (3.2-5.5) g/dL Globulin (2.1-4.2) g/dL Albumin/Globulin Ratio (1.0-2.2) Lipase (22-51) U/L PTH Intact (12-88) pg/mL Urine Color Urine Clarity (CLEAR) Urine pH (5.0-7.5) PH Ur Specific [place] (1.002-1.030) Urine Protein (NEGATIVE) mg/dL Urine Glucose (UA) (NEGATIVE) mg/dL Urine Ketones (NEGATIVE) mg/dL Urine Occult Blood (NEGATIVE) Urine Nitrite (NEGATIVE) Urine Bilirubin (NEGATIVE) Urine Urobilinogen (NORMAL) E.U./dL Ur Leukocyte Esterase (NEGATIVE) Ur Microscopic Review Urine Culture Comments Nasal Adenovirus (PCR) Nasal B. parapertussis DNA (PCR) Nasal Coronavir 229E PCR Nasal Coronavir HKU1 PCR Nasal Coronavir NL63 PCR Nasal Coronavir OC43 PCR Nasal Enterovir/Rhinovir PCR Nasal Influenza B PCR Nasal Influenza A PCR Nasal Parainfluen 1 PCR Nasal Parainfluen 2 PCR Nasal Parainfluen 3 PCR Nasal Parainfluen 4 PCR Nasal RSV (PCR) Nasal B.pertussis DNA PCR Nasal C.pneumoniae (PCR) Nam Human Metapneumo PCR Nasal M.pneumoniae (PCR) Nasal SARS-CoV-2 (PCR) Ethyl Alcohol mg/dL ABX Reporting Has patient been on IV antibiotics over the past 48 hours?: No Assessment/Plan - Problem List (1) Hypercalcemia of malignancy Impression: Suspect his hypercalcemia related to his underlying malignancy. His corrected calcium is approximately 14. He did have some improvement with IV fluids. PTH is decreased as expected. Vitamin D level is pending. We will give him a one- time dose of zoledronic IV today given the hypercalcemia. Continue with IV hydration. I am hoping that his calcium will continue to decrease and he will be able to be discharged tomorrow. He ultimately will need treatment of her underlying malignancy to correct the hypercalcemia. (2) Rectal carcinoma Impression: CT the abdomen pelvis was concerning for a primary rectal cancer with metastasis to the liver and possibly pulmonary metastasis. He may also have peritoneal carcinomatosis. This was discussed with general surgery and plan will be for sigmoidoscopy today for tissue biopsy. He will need outpatient follow-up with oncology. He has a primary care provider appointment for 23 October. I also did speak with palliative care today and they will see him on an outpatient basis. I also spoke with the patient's sister today, Roxy, after the patient gave me permission to do so. She is a retired nurse who has experience in hospice before. We discussed the patient's current medical condition concern for rectal cancer with extensive metastasis. She understands his poor prognosis. (3) Liver masses Impression: This is likely metastatic disease from the primary rectal cancer. He has extensive metastases with the largest mass being 11 cm. He also has abnormal LFTs. He will need outpatient follow-up with oncology. (4) Bilateral lower extremity edema Impression: This may be secondary to hypoalbuminemia but I am also concerned for possible compression of the IVC given the hepatic metastasis. Will discuss with radiology to review the CT again to comment on this. We will obtain a duplex of the lower extremities to ensure there is no DVT. (5) Abnormal LFTs Impression: This is secondary to extensive metastasis likely due to the primary rectal cancer. Do not suspect cirrhosis given the lack of splenomegaly. LFTs are slightly improved today. INR is elevated at 1.6. Continue to trend LFTs. He will need outpatient treatment of his underlying malignancy.
[2020-10-18] MEDS ORDERED: ZOLEDRONIC ACID 4 MG in SODIUM CHLORIDE 0.9% 100ML 100 ML IV SCH (08:00)
[2020-10-18] MEDS: ENOXAPARIN 40 MG/0.4 ML SYRINGE SUBQ SCH (09:45)
[2020-10-18] MEDS: polyethylene glycoL 3350 17 GM PACKET PO SCH (09:46)
--- NOTE | 2020-10-18 11:05 | ADVANCE CARE PLANNING NOTE ---
Advance Care Planning - Planning Encounter Date: 10/18/20 Time: 08:40 Purpose: To discuss his current medical condition and clarify goals. Parties in Attendance: The patient and myself. Decisional Capacity of the Patient: He has capacity to make his own medical decisions. - Diagnosis for Encounter (1) Rectal carcinoma Summary: Presents with jaundice and worsening lower extremity edema and abdominal distention. Imaging is concerning for a primary rectal cancer with extensive metastasis to the liver as well as lung. There is also concern for peritoneal carcinomatosis. He is admitted now for hypercalcemia likely due to malignancy. - Encounter Subjective/Patient's Story: The patient states he lives at home with his brother. He has a sister who also lives next door. He is the eighth out of 12 children. He was never and has no children. He works at [employer] in [employer] activities. He was furloughed a couple of months ago due to Covid. He reports a remote history of alcohol abuse but states he does not drink consistently more. His last drink was a couple of weeks ago. He is independent with his ADLs. Objective/Medical Story: He has not seen a physician in many years and does not take any prescription medications. He has never had a colonoscopy. He states his mother had a history of colon cancer. He has noticed that his legs have become swollen over the past 2 weeks and his abdomen has become distended as well. He did not noticed that he was becoming jaundiced until family and friends informed him over the past couple of weeks as well. He decided to seek medical attention after his sister who is a nurse asked him to given the symptoms mentioned above. He is now admitted for hypercalcemia which is believed to be secondary to malignancy. CT of the abdomen and pelvis concerning for rectal cancer with metastasis to the liver and possible pulmonary metastasis as well. Goals of Care: We discussed what entails of CPR and how it requires a hospitalization in the intensive care unit and mechanical ventilation. The patient expressed understanding of this. He states that he wants to be a full code for the time being. He wants to get an official diagnosis and follow-up with oncology to see his treatment options. We did discuss the potential need for hospice but he will consider this based off of his official diagnosis and treatment options and how he does over the next period of time. Plan: Plan at this time will be to consult palliative care so he can be evaluated on an outpatient basis. We will proceed with sigmoidoscopy today for tissue biopsy. We will continue to treat his hypercalcemia and once this is stable, we will look to discharge him so he can follow-up with oncology. He has been set up with a primary care provider for next week. The patient has an optimistic outlook and is looking to following up with oncology to discuss potential treatment options. He wants to be a full code for the time being. Additional Discussion: I did speak with Cherie Gonzalez of palliative care after my discussion with the patient. She will be communicating with his primary care provider regarding an outpatient palliative care consult. I also did speak with the patient's sister at his request to update him regarding his medical condition. I informed her of our concern for rectal cancer with extensive metastases. I told her that he is here in the hospital now for the hypercalcemia which is slowly improving. I informed her that we will attempt to obtain pathology today when he goes for a sigmoidoscopy with general surgery. The plan will be outpatient follow-up with oncology on discharge to discuss potential treatment options. I informed her that his prognosis appears to be quite poor and I am concerned that he will likely require hospice. She is a retired nurse and is familiar with hospice. All of her questions were answered. Code Status: Attempt Resuscitation Time spent on advance care plannin
[2020-10-18] MEDS ORDERED: PROPOFOL 500 MG/50 ML 500 MG/50 ML VIAL ONE (11:46)
--- NOTE | 2020-10-18 11:50 | ANESTHESIA ---
Pre-Anesthesia VS, & Labs - Diagnosis rectal cancer - Procedure Colonoscopy Vital Signs: Temp Pulse Resp BP Pulse Ox 36.7 C 100 19 120/64 94 10/18/20 08:07 10/18/20 08:07 10/18/20 08:07 10/18/20 08:07 10/18/20 08:07 Height: 5 ft 8 in Weight (kg): 70 kg Body Mass Index: 23.4 BMI Classification: Healthy weight - NPO >8 hours - Lab Results Current Lab Results: Laboratory Tests 10/18/20 04:27: PTH Intact 5 L 10/18/20 04:27: Sodium 136, Potassium 3.9, Chloride 104, Carbon Dioxide 21, Anion Gap 11.0, BUN 22 H, Creatinine 0.5 L, Estimated GFR (MDRD) 169, Glucose 87, Calcium 12.2 H*, Magnesium 2.2, Total Bilirubin 10.2 H, Direct Bilirubin 6.0 H, AST 142 H, ALT 80 H, Alkaline Phosphatase 276 H, Total Protein 6.2 L, Albumin 1.9 L, Globulin 4.3 H 10/18/20 04:27: WBC 14.7 H, RBC 2.86 L, Hgb 10.5 L, Hct 32.0 L, MCV 111.9 H, MCH 36.7 H, MCHC 32.8, RDW 19.9 H, Plt Count 254, MPV 11.7 H, Neut # (Auto) 11.6 H, Lymph # (Auto) 1.5, [place] # (Auto) 1.4 H, Eos # (Auto) 0.1, Baso # (Auto) 0.1, Absolute Nucleated RBC 0.00, Nucleated RBC % 0.0 10/17/20 14:20: Ethyl Alcohol < 5.0 10/17/20 14:20: PT 17.0 H, INR 1.6 H 10/17/20 14:20: Sodium 132 L, Potassium 4.0, Chloride 98 L, Carbon Dioxide 24, Anion Gap 10.0, BUN 21 H, Creatinine 0.6, Estimated GFR (MDRD) 137, Glucose 100, Calcium 12.6 H*, Total Bilirubin 10.8 H, AST 171 H, ALT 94 H, Alkaline Phosphatase 352 H, Total Protein 7.1, Albumin 2.2 L, Globulin 4.9 H, Albumin/Globulin Ratio 0.4 L, Lipase 20 L 10/17/20 14:20: WBC 16.0 H, RBC 3.20 L, Hgb 11.7 L, Hct 35.9 L, MCV 112.2 H, MCH 36.6 H, MCHC 32.6, RDW 19.4 H, Plt Count 263, MPV 11.5 H, Neut # (Auto) 13.1 H, Lymph # (Auto) 1.2 L, [place] # (Auto) 1.5 H, Eos # (Auto) 0.1, Baso # (Auto) 0.1, Absolute Nucleated RBC 0.00, Nucleated RBC % 0.0, Manual Slide Review Indicated, Platelet Estimate NORMAL (130-450,000), Platelet Morphology NORMAL APPEARANCE, RBC Morph Micro Appear 1+ TARGET CELLS 10/17/20 13:44: Ammonia 41.3 H Lab results reviewed: Yes Fish Bones: 10/18/20 04:27 10/18/20 04:27 Home Medications and Allergies Active Medications Enoxaparin Sodium (Enoxaparin 40 Mg/0.4 Ml Syringe) 40 mg SUBQ DAILY [facility] Last Admin: 10/18/20 09:45 Dose: 40 mg Documented by: Sodium Chloride (Normal Saline 0.9%) 1,000 mls @ 150 mls/hr IV .Q6H40M [facility] Last Infusion: 10/18/20 09:30 Dose: 150 mls/hr Documented by: Ibuprofen (Ibuprofen 400 Mg Tablet) 400 mg PO Q4HR PRN PRN Reason: Pain 1 to 4 Morphine Sulfate (Morphine 2 Mg/Ml Carpuject) 1 mg IVP Q2HR PRN PRN Reason: Pain 8 to 10 Last Admin: 10/18/20 09:52 Dose: 1 mg Documented by: Ondansetron HCl (Ondansetron Odt 4 Mg Tablet) 4 mg TL Q6HR PRN PRN Reason: Nausea / Vomiting Polyethylene Glycol (Polyethylene Glycol 3350 17 Gm Packet) 17 gm PO DAILY [facility] Last Admin: 10/18/20 09:46 Dose: Not Given Documented by: Sodium Chloride (Sodium Chloride Flush 0.9% 10 Ml Syringe) 10 ml IVP PRN PRN PRN Reason: NEEDED PER PROVIDER ORDERS Last Admin: 10/18/20 01:48 Dose: 10 ml Documented by: Sodium Chloride (Sodium Chloride Flush 0.9% 10 Ml Syringe) 10 ml IVP 0100,0900,1700 [facility] Last Admin: 10/18/20 09:46 Dose: 10 ml Documented by: Allergies/Adverse Reactions: Allergies Allergy/AdvReac Type Severity Reaction Status Date / Time No Known Drug Allergies Allergy Verified 10/17/20 13:48 Anes History & Medical History - Anesthetic History Anesthesia Complications: reports: No previous complications Family history of Anesthesia Complications: Denies Family history of Malignant Hyperthermia: Denies - Medical History Cardiovascular: reports: None Pulmonary: reports: Asthma, Shortness of breath Gastrointestinal: reports: None, Other (jaundice, ascities) Urinary: reports: None Neuro: reports: None Musculoskeletal: reports: None Endocrine/Autoimmune: reports: None Blood Disorders: reports: None Skin: reports: None Smoking Status: Former smoker - Surgical History Eyes Ears Nose Throat (EENT): Other (right ear. Unspecified. During infancy) Exam General: Alert, Oriented x3, Cooperative, No acute distress Dental: Poor dentition Mouth Openin Fingerbreadth Neck Mobility: Normal Mallampati classification: II Respiratory: Lungs clear, Normal breath sounds, No respiratory distress, No accessory muscle use Cardiovascular: Regular rate, Normal S1, Normal S2, No murmurs Plan Anesthesia Type: MAC Consent for Procedure(s) Verified and Reviewed: Yes Code Status: Attempt Resuscitation ASA classification: 3-Severe systemic disease Is this case an emergency?: No
[2020-10-18] MEDS ORDERED: SODIUM CHLORIDE 0.9% 1,000 ML IV ONE (12:51)
--- NOTE | 2020-10-18 12:56 | ANESTHESIA POST OP EVALUATION ---
Anesthesia Post Eval - Post Anesthesia Eval Vitals: Last Vital Signs Temp 36.8 C 10/18/20 12:49 Pulse 104 H 10/18/20 12:50 Resp 24 10/18/20 12:50 BP 96/60 10/18/20 12:50 Pulse Ox 98 10/18/20 12:50 CV Function Including HR & BP: positive: Stable Pain Control: positive: Satisfactory Nausea & Vomiting: positive: Negative Mental Status: positive: Baseline Respiratory Status: Airway Patent Hydration Status: Satisfactory Anesthesia Complications: positive: None
--- NOTE | 2020-10-18 13:37 | PROVIDER PROGRESS NOTE ---
Progress Note Patient status post colonoscopy diagnostic with biopsy: 1. Large circumferential mass 3 to 4 cm above the anal verge. Multiply biopsied. 2. Masses approximately 5 cm in length, fungating, ulcerated, oozing. 3. Proceeded proximately with retained stool throughout the colon achieve the cecum 4. No occult masses seen neither in the cecum, ascending, transverse, descending nor sigmoid colon's. 5. Rectal mass mid to lower rectum neither obstructing nor partial obstructing and was able to transverse endoscopically without any challenge. 6. Perform multiple biopsies, and cauterization of bleeding and Surgicel placed as well. Recommendations and plan: A. Proceed with FFP for any oozing in this area given the patient's elevated INR B. Await oncology input and results from pathology; patient may be candidate for palliative chemotherapy with Mediport placement C. Could also be possible candidate for catheter directed embolization of the large liver lesion and ultimate external beam radiation for palliation of the rectal mass. D. Advance diet
--- NOTE | 2020-10-18 14:16 | Ultrasound Report ---
PROCEDURE: Duplex Ext Veins Bilateral INDICATIONS: Pitting edema TECHNIQUE: Real-time imaging, as well as color and pulse Doppler interrogation, were performed of the deep veins of both legs from the inguinal ligament to the popliteal fossa. COMPARISON: None available FINDINGS: The deep veins are normally compressible, and free of intraluminal thrombus. Color and pu lse Doppler demonstrate normal phasic intravascular flow. There is normal augmentation response to d istal compression maneuver. IMPRESSION: No visible venous thrombosis in either lower extremity. Reviewed by: Sandra Peralta MD on 10/18/2020 2:15 PM PST Approved by: Sandra Peralta MD on 10/18/2020 2:15 PM PST Station ID: [id number]
[2020-10-18 16:32] LABS: CALCIUM 11.8 mg/dL (8.5-10.3); CREATININE 0.6 mg/dL (0.6-1.2)
[2020-10-19 00:40] LABS: HGB - HEMOGLOBIN 10.8 g/dL (14.0-18.0)
[2020-10-19] MEDS: MORPHINE 2 MG/ML CARPUJECT IVP PRN ×5 (00:43→20:03)
[2020-10-19] MEDS: SODIUM CHLORIDE FLUSH 0.9% 10 ML SYRINGE IVP SCH ×3 (00:43→15:58)
[2020-10-19 04:45] LABS: BASOPHILS # (AUTO) 0.1 10^3/uL (0.0-0.1); BASOPHILS % (AUTO) 0.5 %; EOSINOPHILS # (AUTO) 0.1 10^3/uL (0.0-0.7); EOSINOPHILS % (AUTO) 0.5 %; HGB - HEMOGLOBIN 9.8 g/dL (14.0-18.0); LYMPHOCYTES # (AUTO) 0.7 10^3/uL (1.5-3.5); MEAN CORPUSCULAR HEMOGLOBIN 36.6 pg (27.0-31.0); MEAN CORPUSCULAR HGB CONC 32.7 g/dL (32.0-36.0); MEAN CORPUSCULAR VOLUME 111.9 fL (80.0-94.0); MEAN PLATELET VOLUME 11.8 fL (7.4-11.4); MONOCYTES # (AUTO) 0.8 10^3/uL (0.0-1.0); MONOCYTES % (AUTO) 5.2 %; NEUTROPHILS % (AUTO) 88.3 %; PLT - PLATELET COUNT 255 10^3/uL (130-450); RED BLOOD COUNT 2.68 10^6/uL (4.70-6.10); RED CELL DISTRIBUTION WIDTH 19.9 % (12.0-15.0); WHITE BLOOD COUNT 14.7 x10^3/uL (4.8-10.8)
[2020-10-19 05:09] LABS: ALBUMIN 1.9 g/dL (3.2-5.5); BILIRUBIN,DIRECT 6.4 mg/dL (0.1-0.5); BILIRUBIN,TOTAL 11.1 mg/dL (0.2-1.0); CALCIUM 11.4 mg/dL (8.5-10.3); CREATININE 0.6 mg/dL (0.6-1.2); TOTAL PROTEIN 6.3 g/dL (6.7-8.2)
[2020-10-19] MEDS: SODIUM CHLORIDE 0.9% 1,000 ML IV SCH ×3 (05:23→19:56)
[2020-10-19 05:30] LABS: FOLATE 4.4 ng/mL (5.90 - >24.8)
--- NOTE | 2020-10-19 07:41 | PROVIDER PROGRESS NOTE ---
Subjective - Prog Note Date Prog Note Date: 10/19/20 - Subjective Subjective: He feels bloated and distended today. No nausea or vomiting. Passing gas although he has not had a bowel movement today. He was able to eat a little bit of breakfast. Current Medications - Current Medications Current Medications: Active Medications Enoxaparin Sodium (Enoxaparin 40 Mg/0.4 Ml Syringe) 40 mg SUBQ DAILY [facility] Last Admin: 10/19/20 08:07 Dose: 40 mg Documented by: Sodium Chloride (Normal Saline 0.9%) 1,000 mls @ 150 mls/hr IV .Q6H40M [facility] Last Admin: 10/19/20 12:46 Dose: 150 mls/hr Documented by: Ibuprofen (Ibuprofen 400 Mg Tablet) 400 mg PO Q4HR PRN PRN Reason: Pain 1 to 4 Morphine Sulfate (Morphine 2 Mg/Ml Carpuject) 1 mg IVP Q2HR PRN PRN Reason: Pain 8 to 10 Last Admin: 10/19/20 12:46 Dose: 1 mg Documented by: Multivitamins (Multivitamin Tablet) 1 tab PO DAILYWM [facility] Last Admin: 10/19/20 08:07 Dose: 1 tab Documented by: Ondansetron HCl (Ondansetron Odt 4 Mg Tablet) 4 mg TL Q6HR PRN PRN Reason: Nausea / Vomiting Polyethylene Glycol (Polyethylene Glycol 3350 17 Gm Packet) 17 gm PO DAILY [facility] Last Admin: 10/19/20 08:08 Dose: 17 gm Documented by: Sodium Chloride (Sodium Chloride Flush 0.9% 10 Ml Syringe) 10 ml IVP PRN PRN PRN Reason: NEEDED PER PROVIDER ORDERS Last Admin: 10/18/20 01:48 Dose: 10 ml Documented by: Sodium Chloride (Sodium Chloride Flush 0.9% 10 Ml Syringe) 10 ml IVP 0100,0900,1700 [facility] Last Admin: 10/19/20 08:07 Dose: Not Given Documented by: Thiamine HCl (Thiamine 100 Mg Tablet) 100 mg PO DAILY [facility] Last Admin: 10/19/20 08:07 Dose: 100 mg Documented by: Objective - Vital Signs/Intake & Output Reviewed Vital Signs: Yes Vital Signs: Vital Signs x48h Temp Pulse Resp BP Pulse Ox 10/19/20 00:17 36.2 C L 114 H 18 135/64 H 96 Intake & Output: Intake & Output 10/16/20 10/17/20 10/18/20 10/19/20 23:59 23:59 23:59 23:59 Intake Total 843 5117.0 987.5 Balance 843 5117.0 987.5 - Objective General Appearance: positive: No acute distress, Alert Eyes Bilateral: positive: Other (Scleral icterus) ENT: positive: ENT inspection nml Neck: positive: Nml inspection Respiratory: positive: No respiratory distress. negative: Wheezes, Rales Cardiovascular: positive: Regular rate & rhythm. negative: Tachycardia, Systolic murmur Abdomen: positive: Hepatomegaly. negative: No distention, Tenderness, Guarding, Rebound Skin: positive: Warm, Dry Extremities: positive: Pedal edema (+3 pitting edema in the bilateral lower extremities up to the abdomen.) Neurologic/Psychiatric: negative: Disoriented to person, Disoriented to place - Lab Results Fish Bones: 10/19/20 04:00 10/19/20 04:00 Other Labs: Lab Results x24hrs 10/19/20 10/19/20 10/19/20 Range/Units 04:00 04:00 04:00 WBC 14.7 H (4.8-10.8) x10^3/uL RBC 2.68 L (4.70-6.10) 10^6/uL Hgb 9.8 L (14.0-18.0) g/dL Hct 30.0 L (42.0-52.0) % MCV 111.9 H (80.0-94.0) fL MCH 36.6 H (27.0-31.0) pg MCHC 32.7 (32.0-36.0) g/dL RDW 19.9 H (12.0-15.0) % Plt Count 255 (130-450) 10^3/uL MPV 11.8 H (7.4-11.4) fL Neut # (Auto) 13.0 H (1.5-6.6) 10^3/uL Lymph # (Auto) 0.7 L (1.5-3.5) 10^3/uL [place] # (Auto) 0.8 (0.0-1.0) 10^3/uL Eos # (Auto) 0.1 (0.0-0.7) 10^3/uL Baso # (Auto) 0.1 (0.0-0.1) 10^3/uL Absolute Nucleated RBC 0.00 x10^3/uL Nucleated RBC % 0.0 /100WBC Sodium 137 (135-145) mmol/L Potassium 3.9 (3.5-5.0) mmol/L Chloride 108 (101-111) mmol/L Carbon Dioxide 19 L (21-32) mmol/L Anion Gap 10.0 (6-13) BUN 23 H (6-20) mg/dL Creatinine 0.6 (0.6-1.2) mg/dL Estimated GFR (MDRD) 137 (>89) Glucose 81 (70-100) mg/dL POC Whole Bld Glucose (70 - 100) mg/dL Calcium 11.4 H (8.5-10.3) mg/dL Magnesium 2.0 (1.7-2.8) mg/dL Total Bilirubin 11.1 H (0.2-1.0) mg/dL Direct Bilirubin 6.4 H (0.1-0.5) mg/dL AST 130 H (10-42) IU/L ALT 69 H (10-60) IU/L Alkaline Phosphatase 240 H (42-121) IU/L Total Protein 6.3 L (6.7-8.2) g/dL Albumin 1.9 L (3.2-5.5) g/dL Globulin 4.4 H (2.1-4.2) g/dL Vitamin B12 4803 H (180-914) pg/mL 25-OH Vitamin D Total (30-100) ng/mL Folate 4.40 L (5.90 - >24.8) ng/mL Blood Type Blood Type Recheck Antibody Screen 10/19/20 10/18/20 10/18/20 Range/Units 00:35 16:03 15:58 WBC (4.8-10.8) x10^3/uL RBC (4.70-6.10) 10^6/uL Hgb 10.8 L (14.0-18.0) g/dL Hct 33.0 L (42.0-52.0) % MCV (80.0-94.0) fL MCH (27.0-31.0) pg MCHC (32.0-36.0) g/dL RDW (12.0-15.0) % Plt Count (130-450) 10^3/uL MPV (7.4-11.4) fL Neut # (Auto) (1.5-6.6) 10^3/uL Lymph # (Auto) (1.5-3.5) 10^3/uL [place] # (Auto) (0.0-1.0) 10^3/uL Eos # (Auto) (0.0-0.7) 10^3/uL Baso # (Auto) (0.0-0.1) 10^3/uL Absolute Nucleated RBC x10^3/uL Nucleated RBC % /100WBC Sodium 134 L (135-145) mmol/L Potassium 3.8 (3.5-5.0) mmol/L Chloride 105 (101-111) mmol/L Carbon Dioxide 21 (21-32) mmol/L Anion Gap 8.0 (6-13) BUN 22 H (6-20) mg/dL Creatinine 0.6 (0.6-1.2) mg/dL Estimated GFR (MDRD) 137 (>89) Glucose 101 H (70-100) mg/dL POC Whole Bld Glucose (70 - 100) mg/dL Calcium 11.8 H (8.5-10.3) mg/dL Magnesium (1.7-2.8) mg/dL Total Bilirubin (0.2-1.0) mg/dL Direct Bilirubin (0.1-0.5) mg/dL AST (10-42) IU/L ALT (10-60) IU/L Alkaline Phosphatase (42-121) IU/L Total Protein (6.7-8.2) g/dL Albumin (3.2-5.5) g/dL Globulin (2.1-4.2) g/dL Vitamin B12 (180-914) pg/mL 25-OH Vitamin D Total (30-100) ng/mL Folate (5.90 - >24.8) ng/mL Blood Type O NEGATIVE Blood Type Recheck Antibody Screen NEGATIVE 10/18/20 10/18/20 10/18/20 Range/Units 12:07 04:27 04:27 WBC (4.8-10.8) x10^3/uL RBC (4.70-6.10) 10^6/uL Hgb (14.0-18.0) g/dL Hct (42.0-52.0) % MCV (80.0-94.0) fL MCH (27.0-31.0) pg MCHC (32.0-36.0) g/dL RDW (12.0-15.0) % Plt Count (130-450) 10^3/uL MPV (7.4-11.4) fL Neut # (Auto) (1.5-6.6) 10^3/uL Lymph # (Auto) (1.5-3.5) 10^3/uL [place] # (Auto) (0.0-1.0) 10^3/uL Eos # (Auto) (0.0-0.7) 10^3/uL Baso # (Auto) (0.0-0.1) 10^3/uL Absolute Nucleated RBC x10^3/uL Nucleated RBC % /100WBC Sodium (135-145) mmol/L Potassium (3.5-5.0) mmol/L Chloride (101-111) mmol/L Carbon Dioxide (21-32) mmol/L Anion Gap (6-13) BUN (6-20) mg/dL Creatinine (0.6-1.2) mg/dL Estimated GFR (MDRD) (>89) Glucose (70-100) mg/dL POC Whole Bld Glucose 74 (70 - 100) mg/dL Calcium (8.5-10.3) mg/dL Magnesium (1.7-2.8) mg/dL Total Bilirubin (0.2-1.0) mg/dL Direct Bilirubin (0.1-0.5) mg/dL AST (10-42) IU/L ALT (10-60) IU/L Alkaline Phosphatase (42-121) IU/L Total Protein (6.7-8.2) g/dL Albumin (3.2-5.5) g/dL Globulin (2.1-4.2) g/dL Vitamin B12 (180-914) pg/mL 25-OH Vitamin D Total 32 (30-100) ng/mL Folate (5.90 - >24.8) ng/mL Blood Type Blood Type Recheck O NEGATIVE Antibody Screen ABX Reporting Has patient been on IV antibiotics over the past 48 hours?: No Assessment/Plan - Problem List (1) Hypercalcemia of malignancy Impression: His calcium is improving but still remains elevated when corrected for his hypoalbuminemia. He continues to improve with IV fluids. His PTH is decreased as expected. Given he still has moderate hypercalcemia, we will keep him hospitalized for 1 more day for further hydration with IV fluids. I am hopeful that he will be able to be discharged tomorrow. (2) Rectal carcinoma Impression: Colonoscopy yesterday revealed a rectal mass that is highly suspicious for malignancy. This underwent biopsy. Pathology is pending. He will need outpat ient follow-up on discharge with oncology to discuss potential treatment options for him. I spoke again with the patient and his sister, Roxy, today to once again expressed my concerns for his poor prognosis. (3) Liver masses Impression: This is quite concerning for metastasis. He will need outpatient follow-up with oncology. (4) Bilateral lower extremity edema Impression: This is likely secondary to hypoalbuminemia as well possible IVC compression from the liver metastasis. Dopplers were negative for DVT. Edema overall is stable possibly slightly increased given he is receiving IV fluids hypercalcemia. (5) Abnormal LFTs Impression: This is secondary to liver metastasis and are stable.
[2020-10-19] MEDS: MULTIVITAMIN TABLET PO SCH (08:07)
[2020-10-19] MEDS: THIAMINE 100 MG TABLET PO SCH (08:07)
[2020-10-19] MEDS: ENOXAPARIN 40 MG/0.4 ML SYRINGE SUBQ SCH (08:07)
[2020-10-19] MEDS: polyethylene glycoL 3350 17 GM PACKET PO SCH (08:08)
[2020-10-19 08:37] LABS: INR 1.7 (0.8-1.2); PT - PROTHROMBIN TIME 18.6 secs (9.9-12.6)
[2020-10-20] MEDS: SODIUM CHLORIDE FLUSH 0.9% 10 ML SYRINGE IVP SCH ×3 (01:17→15:17)
[2020-10-20] MEDS: MORPHINE 2 MG/ML CARPUJECT IVP PRN ×4 (01:26→15:17)
[2020-10-20] MEDS: SODIUM CHLORIDE 0.9% 1,000 ML IV SCH (02:33)
[2020-10-20 04:37] LABS: BASOPHILS # (AUTO) 0.1 10^3/uL (0.0-0.1); BASOPHILS % (AUTO) 0.5 %; EOSINOPHILS # (AUTO) 0.1 10^3/uL (0.0-0.7); EOSINOPHILS % (AUTO) 0.8 %; HGB - HEMOGLOBIN 9.8 g/dL (14.0-18.0); LYMPHOCYTES # (AUTO) 0.9 10^3/uL (1.5-3.5); LYMPHOCYTES % (AUTO) 6.4 %; MEAN CORPUSCULAR HEMOGLOBIN 36.4 pg (27.0-31.0); MEAN CORPUSCULAR HGB CONC 32.3 g/dL (32.0-36.0); MEAN CORPUSCULAR VOLUME 112.6 fL (80.0-94.0); MEAN PLATELET VOLUME 11.3 fL (7.4-11.4); MONOCYTES # (AUTO) 1.1 10^3/uL (0.0-1.0); MONOCYTES % (AUTO) 8.1 %; NEUTROPHILS # (AUTO) 11.8 10^3/uL (1.5-6.6); NEUTROPHILS % (AUTO) 83.5 %; PLT - PLATELET COUNT 248 10^3/uL (130-450); RED BLOOD COUNT 2.69 10^6/uL (4.70-6.10); RED CELL DISTRIBUTION WIDTH 19.6 % (12.0-15.0); WHITE BLOOD COUNT 14.2 x10^3/uL (4.8-10.8)
[2020-10-20 04:44] LABS: CALCIUM 10.1 mg/dL (8.5-10.3); CREATININE 0.5 mg/dL (0.6-1.2)
[2020-10-20] MEDS: MULTIVITAMIN TABLET PO SCH (07:54)
[2020-10-20] MEDS: ENOXAPARIN 40 MG/0.4 ML SYRINGE SUBQ SCH (09:05)
[2020-10-20] MEDS: THIAMINE 100 MG TABLET PO SCH (09:06)
[2020-10-20] MEDS: polyethylene glycoL 3350 17 GM PACKET PO SCH (09:06)
--- NOTE | 2020-10-20 09:07 | PHARMACY PROGRESS NOTE ---
- Best Possible Medication History Admit Date and Time: 10/19/20 1021 Processed by: Pharmacy Medication History completed: Yes Patient Interview: Pt interview ONLY source Patient take OTC turmeric and potassium. As the person ultimately responsible for medication therapy, providers are able to order a medication from an existing home medication list in [facility] via the "Reconcile Routine" prior to Confirmation of that medication by user support specialist. Such practice is discouraged except when the physician, in their clinical judgment, deems that a medical need exists for a medication without regard to previous use.
[2020-10-20] MEDS: IBUPROFEN 400 MG TABLET PO PRN ×2 (09:18→18:19)
[2020-10-20] MEDS ORDERED: CHERRY SYRUP 10 ML UDC PO ONE (11:13)
[2020-10-20] MEDS ORDERED: PHYTONADIONE 10 MG/ML AMP PO ONE (11:13)
[2020-10-20 12:38] LABS: CALCIUM 10.2 mg/dL (8.5-10.3); CREATININE 0.7 mg/dL (0.6-1.2)
--- NOTE | 2020-10-20 14:45 | PROVIDER PROGRESS NOTE ---
Subjective - Prog Note Date Prog Note Date: 10/20/20 - Subjective Subjective: He reports feeling bloated and distended. Feels short of breath due to distention with exertion. Continues to have lower extremity edema although this does not bother him as much. Current Medications - Current Medications Current Medications: Active Medications Enoxaparin Sodium (Enoxaparin 40 Mg/0.4 Ml Syringe) 40 mg SUBQ DAILY [facility] Last Admin: 10/20/20 09:05 Dose: 40 mg Documented by: Ibuprofen (Ibuprofen 400 Mg Tablet) 400 mg PO Q4HR PRN PRN Reason: Pain 1 to 4 Last Admin: 10/20/20 09:18 Dose: 400 mg Documented by: Morphine Sulfate (Morphine 2 Mg/Ml Carpuject) 1 mg IVP Q2HR PRN PRN Reason: Pain 8 to 10 Last Admin: 10/20/20 15:17 Dose: 1 mg Documented by: Multivitamins (Multivitamin Tablet) 1 tab PO DAILYWM [facility] Last Admin: 10/20/20 07:54 Dose: 1 tab Documented by: Ondansetron HCl (Ondansetron Odt 4 Mg Tablet) 4 mg TL Q6HR PRN PRN Reason: Nausea / Vomiting Polyethylene Glycol (Polyethylene Glycol 3350 17 Gm Packet) 17 gm PO DAILY [facility] Last Admin: 10/20/20 09:06 Dose: 17 gm Documented by: Sodium Chloride (Sodium Chloride Flush 0.9% 10 Ml Syringe) 10 ml IVP PRN PRN PRN Reason: NEEDED PER PROVIDER ORDERS Last Admin: 10/18/20 01:48 Dose: 10 ml Documented by: Sodium Chloride (Sodium Chloride Flush 0.9% 10 Ml Syringe) 10 ml IVP 0100,0900,1700 [facility] Last Admin: 10/20/20 15:17 Dose: 10 ml Documented by: Thiamine HCl (Thiamine 100 Mg Tablet) 100 mg PO DAILY [facility] Last Admin: 10/20/20 09:06 Dose: 100 mg Documented by: No Known Home Medications 10/20/20 Objective - Vital Signs/Intake & Output Reviewed Vital Signs: Yes Vital Signs: Vital Signs x48h Temp Pulse Resp BP Pulse Ox 10/20/20 08:00 36.7 C 102 H 22 111/68 93 Intake & Output: Intake & Output 10/17/20 10/18/20 10/19/20 10/20/20 23:59 23:59 23:59 23:59 Intake Total 843 5117.0 4750.0 2330 Balance 843 5117.0 4750.0 2330 - Objective General Appearance: positive: No acute distress, Alert Eyes Bilateral: positive: Normal inspection, Other (Scleral icterus.). negative: No scleral icterus ENT: positive: ENT inspection nml Neck: positive: Nml inspection Respiratory: positive: No respiratory distress. negative: Wheezes, Rales Cardiovascular: positive: No murmur. negative: Tachycardia, Systolic murmur Abdomen: positive: Tenderness (Mild diffuse tenderness.), Hepatomegaly (Hepatomegaly is less prominent today due to abdominal distention.). negative: No distention (Abdomen is more distended today.) Skin: positive: Other (Jaundice) Extremities: positive: Pedal edema (+3 pitting edema in the bilateral lower extremities) Neurologic/Psychiatric: negative: Disoriented to person, Disoriented to place - Lab Results Fish Bones: 10/20/20 04:10 10/20/20 12:03 Other Labs: Lab Results x24hrs 10/20/20 10/20/20 10/20/20 Range/Units 12:03 04:10 04:10 WBC 14.2 H (4.8-10.8) x10^3/uL RBC 2.69 L (4.70-6.10) 10^6/uL Hgb 9.8 L (14.0-18.0) g/dL Hct 30.3 L (42.0-52.0) % MCV 112.6 H (80.0-94.0) fL MCH 36.4 H (27.0-31.0) pg MCHC 32.3 (32.0-36.0) g/dL RDW 19.6 H (12.0-15.0) % Plt Count 248 (130-450) 10^3/uL MPV 11.3 (7.4-11.4) fL Neut # (Auto) 11.8 H (1.5-6.6) 10^3/uL Lymph # (Auto) 0.9 L (1.5-3.5) 10^3/uL [place] # (Auto) 1.1 H (0.0-1.0) 10^3/uL Eos # (Auto) 0.1 (0.0-0.7) 10^3/uL Baso # (Auto) 0.1 (0.0-0.1) 10^3/uL Absolute Nucleated RBC 0.00 x10^3/uL Nucleated RBC % 0.0 /100WBC Sodium 133 L 133 L (135-145) mmol/L Potassium 3.8 3.9 (3.5-5.0) mmol/L Chloride 106 106 (101-111) mmol/L Carbon Dioxide 17 L 17 L (21-32) mmol/L Anion Gap 10.0 10.0 (6-13) BUN 23 H 21 H (6-20) mg/dL Creatinine 0.7 0.5 L (0.6-1.2) mg/dL Estimated GFR (MDRD) 115 169 (>89) Glucose 128 H 78 (70-100) mg/dL Calcium 10.2 10.1 (8.5-10.3) mg/dL Magnesium 2.0 (1.7-2.8) mg/dL ABX Reporting Has patient been on IV antibiotics over the past 48 hours?: No Assessment/Plan - Problem List (1) Hypercalcemia of malignancy Impression: His calcium has improved today although it is still elevated when corrected for his hypoalbuminemia. At this point in time, I suspect this is likely as low as it will get until his underlying ligaments he is treated. He does not appear symptomatic with this hypercalcemia. We will discontinue IV fluids and monitor his BMP to ensure this is stable after discontinuation of IV fluids. (2) Rectal carcinoma Impression: Biopsy was obtained via colonoscopy. He has extensive metastasis. Pathology is pending. Will need outpatient follow-up with oncology. (3) Ascites Impression: This is suspected to be malignant ascites. I spoke with general surgery today and the plan is to attempt to reverse his coagulopathy and attempt a paracentesis tomorrow. I will give him vitamin K today and recheck INR tomorrow. We will obtain ultrasound of the abdomen and proceed with breast cyst tomorrow given his abdominal distention. We will send for studies and cytology. (4) Liver masses Impression: This is secondary to the rectal cancer. He will need outpatient follow-up with oncology. (5) Bilateral lower extremity edema Impression: Appears slightly more edematous today likely due to the amount of IV fluids he has received. This is also likely due to IVC compression. We will discontinue IV fluids today. We will not start him on diuretics given the hypercalcemia. (6) Abnormal LFTs Impression: Secondary to metastatic disease. LFTs are stable.
[2020-10-21] MEDS: MORPHINE 2 MG/ML CARPUJECT IVP PRN ×4 (00:57→15:01)
[2020-10-21] MEDS: SODIUM CHLORIDE FLUSH 0.9% 10 ML SYRINGE IVP SCH ×4 (00:57→23:41)
[2020-10-21] MEDS: SODIUM CHLORIDE FLUSH 0.9% 10 ML SYRINGE IVP PRN ×3 (03:57→15:01)
[2020-10-21 05:32] LABS: BASOPHILS # (AUTO) 0.1 10^3/uL (0.0-0.1); BASOPHILS % (AUTO) 0.7 %; EOSINOPHILS # (AUTO) 0.1 10^3/uL (0.0-0.7); HGB - HEMOGLOBIN 10.5 g/dL (14.0-18.0); LYMPHOCYTES # (AUTO) 1.3 10^3/uL (1.5-3.5); LYMPHOCYTES % (AUTO) 9.3 %; MEAN CORPUSCULAR HEMOGLOBIN 37.2 pg (27.0-31.0); MEAN CORPUSCULAR HGB CONC 33.2 g/dL (32.0-36.0); MEAN CORPUSCULAR VOLUME 112.1 fL (80.0-94.0); MEAN PLATELET VOLUME 11.3 fL (7.4-11.4); MONOCYTES # (AUTO) 1.3 10^3/uL (0.0-1.0); MONOCYTES % (AUTO) 8.9 %; NEUTROPHILS # (AUTO) 11.3 10^3/uL (1.5-6.6); NEUTROPHILS % (AUTO) 79.3 %; PLT - PLATELET COUNT 240 10^3/uL (130-450); RED BLOOD COUNT 2.82 10^6/uL (4.70-6.10); RED CELL DISTRIBUTION WIDTH 19.1 % (12.0-15.0); WHITE BLOOD COUNT 14.2 x10^3/uL (4.8-10.8)
[2020-10-21 05:33] LABS: INR 1.6 (0.8-1.2); PT - PROTHROMBIN TIME 17.3 secs (9.9-12.6)
[2020-10-21 05:43] LABS: CALCIUM 10.3 mg/dL (8.5-10.3); CREATININE 0.6 mg/dL (0.6-1.2); MAGNESIUM 2.2 mg/dL (1.7-2.8)
[2020-10-21] MEDS: MULTIVITAMIN TABLET PO SCH (07:39)
[2020-10-21] MEDS: ENOXAPARIN 40 MG/0.4 ML SYRINGE SUBQ SCH (08:58)
[2020-10-21] MEDS: polyethylene glycoL 3350 17 GM PACKET PO SCH (08:58)
[2020-10-21] MEDS: THIAMINE 100 MG TABLET PO SCH (08:59)
[2020-10-21] MEDS: FOLIC ACID 1 MG TABLET PO SCH (10:23)
[2020-10-21 10:49] LABS: ALBUMIN 1.9 g/dL (3.2-5.5); BILIRUBIN,DIRECT 6.1 mg/dL (0.1-0.5); BILIRUBIN,TOTAL 10.4 mg/dL (0.2-1.0); TOTAL PROTEIN 6.4 g/dL (6.7-8.2)
--- NOTE | 2020-10-21 11:46 | Discharge Plan ---
Discharge Plan Problem Reviewed?: Yes Disposition: Home, Self Care Condition: Poor Prescriptions: Folic Acid 1 mg PO DAILY #30 tablet oxyCODONE [Roxicodone] 5 mg PO Q6H PRN #30 tablet PRN Reason: Pain Multivitamin [Theragran] 1 tab PO DAILYWM #30 tablet Diet: Regular Activity Restrictions: Activity as Tolerated Health Concerns: You were seen in the hospital because of abdominal distention and leg swelling. You were also found to have elevated calcium levels. We did do a CT scan of your belly which was concerning for rectal cancer. You had a colonoscopy and biopsies were obtained. This colonoscopy did reveal a 5 cm mass in your rectum. It unfortunately appears that the cancer has spread to your liver and the rest of your abdomen and possibly your lungs as well. You had the fluid in your abdomen drained by the surgeon. Your calcium numbers did improve after receiving IV fluids although they are still elevated. Plan of Treatment: It willbe important to follow-up with your new primary care provider, Malina Hess, on October 23 at 3 PM at [facility]. You will need a referral to the oncologist to discuss potential treatment options. I did contact palliative care and they will be speaking with your primary care provider to see you on an outpatient basis. Your folate levels were found to be a little low and so I have prescribed you folic acid to take at home. Assessment: Patient and family expressed understanding of the treatment plan. Additional Instructions or Follow Up instructions: Follow-up with your new primary care provider, Malina Hess, on October 23 at 3 PM at [facility] No Smoking: If you smoke, Please STOP! Call for help.
--- NOTE | 2020-10-21 13:20 | PROVIDER PROGRESS NOTE ---
Subjective - Prog Note Date Prog Note Date: 10/21/20 - Subjective Subjective: He continues to complain of abdominal distention. He feels bloated. Continues have significant lower extremity edema. He would like a paracentesis. Current Medications - Current Medications Current Medications: Active Medications Enoxaparin Sodium (Enoxaparin 40 Mg/0.4 Ml Syringe) 40 mg SUBQ DAILY [facility] Last Admin: 10/21/20 08:58 Dose: 40 mg Documented by: Folic Acid (Folic Acid 1 Mg Tablet) 1 mg PO DAILY [facility] Last Admin: 10/21/20 10:23 Dose: 1 mg Documented by: Albumin Human (Albuminar-25) 12.5 gm in 50 mls @ 50 mls/hr IV Q1H [facility] Stop: 10/21/20 17:59 Ibuprofen (Ibuprofen 400 Mg Tablet) 400 mg PO Q4HR PRN PRN Reason: Pain 1 to 4 Last Admin: 10/20/20 18:19 Dose: 400 mg Documented by: Morphine Sulfate (Morphine 2 Mg/Ml Carpuject) 1 mg IVP Q2HR PRN PRN Reason: Pain 8 to 10 Last Admin: 10/21/20 11:32 Dose: 1 mg Documented by: Multivitamins (Multivitamin Tablet) 1 tab PO DAILYWM [facility] Last Admin: 10/21/20 07:39 Dose: 1 tab Documented by: Ondansetron HCl (Ondansetron Odt 4 Mg Tablet) 4 mg TL Q6HR PRN PRN Reason: Nausea / Vomiting Polyethylene Glycol (Polyethylene Glycol 3350 17 Gm Packet) 17 gm PO DAILY [facility] Last Admin: 10/21/20 08:58 Dose: 17 gm Documented by: Sodium Chloride (Sodium Chloride Flush 0.9% 10 Ml Syringe) 10 ml IVP PRN PRN PRN Reason: NEEDED PER PROVIDER ORDERS Last Admin: 10/21/20 11:32 Dose: 10 ml Documented by: Sodium Chloride (Sodium Chloride Flush 0.9% 10 Ml Syringe) 10 ml IVP 0100,0900,1700 [facility] Last Admin: 10/21/20 08:59 Dose: 10 ml Documented by: Thiamine HCl (Thiamine 100 Mg Tablet) 100 mg PO DAILY [facility] Last Admin: 10/21/20 08:59 Dose: 100 mg Documented by: No Known Home Medications 10/20/20 Objective - Vital Signs/Intake & Output Reviewed Vital Signs: Yes Vital Signs: Vital Signs x48h Temp Pulse Resp BP Pulse Ox 10/21/20 09:30 36.9 C 94 21 108/70 95 Intake & Output: Intake & Output 10/18/20 10/19/20 10/20/20 10/21/20 23:59 23:59 23:59 23:59 Intake Total 5117.0 4750.0 2930 350 Balance 5117.0 4750.0 2930 350 - Objective General Appearance: positive: No acute distress, Alert Eyes Bilateral: positive: Normal inspection, Other (Scleral icterus.) ENT: positive: ENT inspection nml Neck: positive: Nml inspection Respiratory: positive: No respiratory distress. negative: Wheezes, Rales Cardiovascular: positive: Regular rate & rhythm. negative: Tachycardia Abdomen: positive: Non-tender. negative: No distention (Abdomen is distended and firm.), Tenderness, Guarding, Rebound Skin: positive: Warm, Other (Jaundice.) Extremities: positive: Pedal edema (+3 pitting edema in the bilateral lower extremities up to the abdomen.) Neurologic/Psychiatric: negative: Disoriented to person, Disoriented to place - Lab Results Fish Bones: 10/21/20 05:12 10/21/20 05:12 Other Labs: Lab Results x24hrs 10/21/20 10/21/20 10/21/20 Range/Units 05:12 05:12 05:12 WBC (4.8-10.8) x10^3/uL RBC (4.70-6.10) 10^6/uL Hgb (14.0-18.0) g/dL Hct (42.0-52.0) % MCV (80.0-94.0) fL MCH (27.0-31.0) pg MCHC (32.0-36.0) g/dL RDW (12.0-15.0) % Plt Count (130-450) 10^3/uL MPV (7.4-11.4) fL Neut # (Auto) (1.5-6.6) 10^3/uL Lymph # (Auto) (1.5-3.5) 10^3/uL [place] # (Auto) (0.0-1.0) 10^3/uL Eos # (Auto) (0.0-0.7) 10^3/uL Baso # (Auto) (0.0-0.1) 10^3/uL Absolute Nucleated RBC x10^3/uL Nucleated RBC % /100WBC PT 17.3 H (9.9-12.6) secs INR 1.6 H (0.8-1.2) Sodium (135-145) mmol/L Potassium (3.5-5.0) mmol/L Chloride (101-111) mmol/L Carbon Dioxide (21-32) mmol/L Anion Gap (6-13) BUN (6-20) mg/dL Creatinine (0.6-1.2) mg/dL Estimated GFR (MDRD) (>89) Glucose (70-100) mg/dL Calcium (8.5-10.3) mg/dL Magnesium (1.7-2.8) mg/dL Total Bilirubin 10.4 H (0.2-1.0) mg/dL Direct Bilirubin 6.1 H (0.1-0.5) mg/dL AST 125 H (10-42) IU/L ALT 63 H (10-60) IU/L Alkaline Phosphatase 208 H (42-121) IU/L Lactate Dehydrogenase 341 H (91-225) IU/L Total Protein 6.4 L (6.7-8.2) g/dL Albumin 1.9 L (3.2-5.5) g/dL Globulin 4.5 H (2.1-4.2) g/dL 10/21/20 10/21/20 Range/Units 05:12 05:12 WBC 14.2 H (4.8-10.8) x10^3/uL RBC 2.82 L (4.70-6.10) 10^6/uL Hgb 10.5 L (14.0-18.0) g/dL Hct 31.6 L (42.0-52.0) % MCV 112.1 H (80.0-94.0) fL MCH 37.2 H (27.0-31.0) pg MCHC 33.2 (32.0-36.0) g/dL RDW 19.1 H (12.0-15.0) % Plt Count 240 (130-450) 10^3/uL MPV 11.3 (7.4-11.4) fL Neut # (Auto) 11.3 H (1.5-6.6) 10^3/uL Lymph # (Auto) 1.3 L (1.5-3.5) 10^3/uL [place] # (Auto) 1.3 H (0.0-1.0) 10^3/uL Eos # (Auto) 0.1 (0.0-0.7) 10^3/uL Baso # (Auto) 0.1 (0.0-0.1) 10^3/uL Absolute Nucleated RBC 0.00 x10^3/uL Nucleated RBC % 0.0 /100WBC PT (9.9-12.6) secs INR (0.8-1.2) Sodium 134 L (135-145) mmol/L Potassium 3.7 (3.5-5.0) mmol/L Chloride 106 (101-111) mmol/L Carbon Dioxide 18 L (21-32) mmol/L Anion Gap 10.0 (6-13) BUN 24 H (6-20) mg/dL Creatinine 0.6 (0.6-1.2) mg/dL Estimated GFR (MDRD) 137 (>89) Glucose 81 (70-100) mg/dL Calcium 10.3 (8.5-10.3) mg/dL Magnesium 2.2 (1.7-2.8) mg/dL Total Bilirubin (0.2-1.0) mg/dL Direct Bilirubin (0.1-0.5) mg/dL AST (10-42) IU/L ALT (10-60) IU/L Alkaline Phosphatase (42-121) IU/L Lactate Dehydrogenase (91-225) IU/L Total Protein (6.7-8.2) g/dL Albumin (3.2-5.5) g/dL Globulin (2.1-4.2) g/dL Assessment/Plan - Problem List (1) Ascites Impression: He has significant ascites in his abdomen is quite distended today. This is concerning for malignant ascites. I did speak with general surgery and a paracentesis was obtained today. 5.8 L were removed. We will administer him albumin at approximately 6 g a liter of fluid removed. Peritoneal fluid was sent for studies and cytology. (2) Hypercalcemia of malignancy Impression: This is secondary to his malignancy. This has improved with zoledronic acid and IV fluids. Colostomy still elevated but stable off of IV fluids. He is not symptomatic. He is a stable for discharge from a hypercalcemia standpoint. He will ultimately need treatment of his underlying malignancy. (3) Rectal carcinoma Impression: He underwent colonoscopy and pathology is pending. Dr. Cullen did speak with oncology and they will see him in clinic this week. They would like a MediPort placed and so we will keep the patient overnight to monitor him after the paracentesis and to obtain a Mediport in the morning. We will look to discharge him after this. He will follow up with his primary care provider on Thursday and see oncology this week. Palliative care has also been notified and they will see the patient on outpatient basis. (4) Liver masses Impression: This appears to be metastatic disease secondary to rectal cancer. His LFTs are stable. He will have outpatient follow-up with oncology. (5) Bilateral lower extremity edema Impression: This is stable. Likely due to hypoalbuminemia as well as possible IVC compression from the liver masses. We will continue with leg elevation as tolerated. (6) Abnormal LFTs Impression: Secondary to the metastatic disease. LFTs are stable.
--- NOTE | 2020-10-21 14:01 | PROVIDER PROGRESS NOTE ---
Progress Note Subjective 60-year-old male with likely metastatic rectal cancer. Status post colonoscopy see report below. Continues with abdominal bloating with known ascites. Hospital service is asked for paracentesis for symptomatic relief pending discharge. Reports anorexia however no wayne nausea or vomiting. Objective General Appearance: positive: No acute distress Eyes Bilateral: positive: Normal inspection, except for bilateral scleral icterus ENT: positive: ENT inspection nml Neck: positive: Nml inspection Respiratory: positive: Chest non-tender, No respiratory distress, Breath sounds nml. negative: Wheezes, Rales, Rhonchi Cardiovascular: positive: Regular rate & rhythm; Bilateral lower extremity edema Abdomen: positive: Positive distention, Other. negative: Guarding, Rebound Extremities: positive: Non-tender, Full ROM, Nml appearance Neurologic/Psychiatric: positive: Oriented x3, CN's nml (2-12) Diffuse cutaneous jaundice Patient status post colonoscopy diagnostic with biopsy: 1. Large circumferential mass 3 to 4 cm above the anal verge. Multiply biopsied. 2. Masses approximately 5 cm in length, fungating, ulcerated, oozing. 3. Proceeded proximately with retained stool throughout the colon achieve the cecum 4. No occult masses seen neither in the cecum, ascending, transverse, descending nor sigmoid colon's. 5. Rectal mass mid to lower rectum neither obstructing nor partial obstructing and was able to transverse endoscopically without any challenge. 6. Perform multiple biopsies, and cauterization of bleeding and Surgicel placed as well. Impression/Plan 60-year-old male with metastatic rectal cancer pending endoscopic pathology following biopsy. Entire colon evaluated with no other areas concerning for malignancy and no mechanical obstruction easily traversed. Imaging consistent with pulmonary nodules as well as large hepatic mass with no evidence of portal venous hypertension absent splenomegaly amongst others. Patient with malnutrition and associated coagulopathy. Discussed case with Dr. Childers from oncology. Also discussed extensively with Dr. Singh the hospitalist caring for this patient. Patient would likely be candidate for palliative therapeutic intent. To that end given the advanced stage, we will proceed with symptomatic relief with paracentesis for which we will send specimen for cytology. Moreover discussed with Dr. Childers that patient would likely also benefit from Mediport placement towards expediting palliative chemotherapy. He will copy his partners and his clinical practice consultant to assure the patient is seen this week. With regard to the patient's plan while inpatient, we will proceed with paracentesis for which consent was obtained, and plan Mediport placement in the a.m. after which she will be discharged. The patient was explained as well as his brother. We will also ask pathology to add IHC to his specimen given the family history of colorectal cancer in his mother. This will have impact notably for his siblings. Please note that voice recognition software was used to transcribe this note and inadvertent errors might persist in spite of review and editing. I am obliged to you for your attention. I am thankful to you for allowing me to participate with you in this care of this patient.
--- NOTE | 2020-10-21 14:57 | Ultrasound Report ---
PROCEDURE: Abdomen Limited INDICATIONS: Ascites. Paracentesis. TECHNIQUE: Real-time focused scanning was performed of the abdomen, with image documentation. COMPARISON: None. FINDINGS: Large volume ascites is present within all 4 quadrants. Within the right lower quadrant, 5 800 cc of ascites were removed by Dr. Cullen. IMPRESSION: Status post ultrasound-guided paracentesis. Reviewed by: Zehra Parker MD on 10/21/2020 1:56 PM [facility] Approved by: Zehra Parker MD on 10/21/2020 1:56 PM [place] Station ID: [id number]
--- NOTE | 2020-10-21 15:10 | OPERATIVE REPORT ---
Operative Report - General Admit Date: 10/19/20 Procedure Date: 10/21/20 Planned Procedure: 1. Ultrasound-guided abdominal access 2. Therapeutic and diagnostic paracentesis Pre-Op Diagnosis: Ascites, presumptive metastatic rectal cancer, severe protein malnutrition Procedure Performed: 1. Ultrasound-guided abdominal access 2. Therapeutic and diagnostic paracentesis Post Op Diagnosis: Same, large volume ascites, serous, no blood - Procedure Note Primary Surgeon: Subhash Secondary Surgeon: None; MACIE from ultrasound at bedside to assist with evaluation ultrasonogra Anesthesia Provider: None Anesthesia Technique: Local Pathology: Fluid for cytology Estimated Blood Loss (mL): 0 Indications: 1. Abdominal distention 2. Abdominal discomfort 3. Suspected carcinomatosis/malignant ascites Findings: Large volume 5.8 L serous fluid aspirated without any complication; patient tolerated well with no hypertension no syncope no other complications. Postprocedural ultrasonography was without any residual fluid appreciated. Complications: NONE - Other Other Information/Narrative: Pending final report.
[2020-10-21] MEDS: ALBUMIN 25% 12.5 GM/50 ML VIAL IV SCH ×3 (15:31→17:45)
[2020-10-21] MEDS: IBUPROFEN 400 MG TABLET PO PRN ×2 (15:39→21:22)
[2020-10-21 15:50] LABS: BF SOURCE PERITONEAL; CC,BF RBC < 3000 /mm^3
[2020-10-21 15:51] LABS: BF CLARITY CLEAR; BF COLOR YELLOW
[2020-10-21 16:12] LABS: LYMPHOCYTES %,BODY FLUID 2 %
[2020-10-21 16:13] LABS: MACROPHAGES %,BODY FLUID 84 %; MESOTHELIAL %, BF 10 %
[2020-10-22] MEDS: SODIUM CHLORIDE FLUSH 0.9% 10 ML SYRINGE IVP PRN ×2 (00:01→05:11)
[2020-10-22] MEDS: MORPHINE 2 MG/ML CARPUJECT IVP PRN ×3 (00:01→14:21)
[2020-10-22] MEDS ORDERED: CARBOXYMETHYLCELLULOSE OPHTH DROPS EACHEYE PRN (00:05)
[2020-10-22 04:59] LABS: BASOPHILS # (AUTO) 0.1 10^3/uL (0.0-0.1); BASOPHILS % (AUTO) 0.5 %; EOSINOPHILS # (AUTO) 0.1 10^3/uL (0.0-0.7); HGB - HEMOGLOBIN 10.3 g/dL (14.0-18.0); LYMPHOCYTES # (AUTO) 1.7 10^3/uL (1.5-3.5); LYMPHOCYTES % (AUTO) 13.1 %; MEAN CORPUSCULAR HEMOGLOBIN 36.8 pg (27.0-31.0); MEAN CORPUSCULAR HGB CONC 32.6 g/dL (32.0-36.0); MEAN CORPUSCULAR VOLUME 112.9 fL (80.0-94.0); MEAN PLATELET VOLUME 11.4 fL (7.4-11.4); MONOCYTES # (AUTO) 1.2 10^3/uL (0.0-1.0); NEUTROPHILS # (AUTO) 9.8 10^3/uL (1.5-6.6); NEUTROPHILS % (AUTO) 75.7 %; PLT - PLATELET COUNT 227 10^3/uL (130-450); RED CELL DISTRIBUTION WIDTH 19.1 % (12.0-15.0); WHITE BLOOD COUNT 12.9 x10^3/uL (4.8-10.8)
[2020-10-22 05:14] LABS: CREATININE 0.6 mg/dL (0.6-1.2); MAGNESIUM 2.3 mg/dL (1.7-2.8)
[2020-10-22] MEDS: MULTIVITAMIN TABLET PO SCH (08:05)
[2020-10-22] MEDS: SODIUM CHLORIDE FLUSH 0.9% 10 ML SYRINGE IVP SCH (08:38)
[2020-10-22] MEDS: FOLIC ACID 1 MG TABLET PO SCH (08:38)
[2020-10-22] MEDS: polyethylene glycoL 3350 17 GM PACKET PO SCH (08:38)
[2020-10-22] MEDS: THIAMINE 100 MG TABLET PO SCH (08:38)
[2020-10-22] MEDS ORDERED: MIDAZOLAM 2 MG/2 ML VIAL ONE (09:24)
[2020-10-22] MEDS ORDERED: fentaNYL 100 MCG/2 ML VIAL ONE (09:24)
--- NOTE | 2020-10-22 10:04 | ANESTHESIA ---
Pre-Anesthesia VS, & Labs - Diagnosis Diagnosis 1. Rectal mass, concerning for malignancy 2. Hepatic masses, concerning for metastases 3. Pulmonary nodules, concerning for metastases 4. Ascites with peritoneal thickening concerning for carcinomatosis 5. Liver failure, suspected obstruction - Procedure mediport placement Vital Signs: Temp Pulse Resp BP Pulse Ox 36.4 C L 82 14 100/65 98 10/22/20 07:47 10/22/20 07:47 10/22/20 07:47 10/22/20 07:47 10/22/20 07:47 Height: 5 ft 8 in Weight (kg): 70 kg Body Mass Index: 23.4 BMI Classification: Healthy weight - NPO >8 hours - Lab Results Current Lab Results: Laboratory Tests 10/22/20 04:44: Sodium 133 L, Potassium 3.6, Chloride 104, Carbon Dioxide 18 L, Anion Gap 11.0, BUN 28 H, Creatinine 0.6, Estimated GFR (MDRD) 137, Glucose 80, Calcium 10.0, Magnesium 2.3 10/22/20 04:44: WBC 12.9 H, RBC 2.80 L, Hgb 10.3 L, Hct 31.6 L, MCV 112.9 H, MCH 36.8 H, MCHC 32.6, RDW 19.1 H, Plt Count 227, MPV 11.4, Neut # (Auto) 9.8 H, Lymph # (Auto) 1.7, Coryell # (Auto) 1.2 H, Eos # (Auto) 0.1, Baso # (Auto) 0.1, Absolute Nucleated RBC 0.00, Nucleated RBC % 0.0 10/21/20 05:12: Lactate Dehydrogenase 341 H 10/21/20 05:12: Total Bilirubin 10.4 H, Direct Bilirubin 6.1 H, AST 125 H, ALT 63 H, Alkaline Phosphatase 208 H, Total Protein 6.4 L, Albumin 1.9 L, Globulin 4.5 H 10/21/20 05:12: PT 17.3 H, INR 1.6 H 10/21/20 05:12: Sodium 134 L, Potassium 3.7, Chloride 106, Carbon Dioxide 18 L, Anion Gap 10.0, BUN 24 H, Creatinine 0.6, Estimated GFR (MDRD) 137, Glucose 81, Calcium 10.3, Magnesium 2.2 10/21/20 05:12: WBC 14.2 H, RBC 2.82 L, Hgb 10.5 L, Hct 31.6 L, MCV 112.1 H, MCH 37.2 H, MCHC 33.2, RDW 19.1 H, Plt Count 240, MPV 11.3, Neut # (Auto) 11.3 H, Lymph # (Auto) 1.3 L, Coryell # (Auto) 1.3 H, Eos # (Auto) 0.1, Baso # (Auto) 0.1, Absolute Nucleated RBC 0.00, Nucleated RBC % 0.0 10/20/20 12:03: Sodium 133 L, Potassium 3.8, Chloride 106, Carbon Dioxide 17 L, Anion Gap 10.0, BUN 23 H, Creatinine 0.7, Estimated GFR (MDRD) 115, Glucose 128 H, Calcium 10.2 10/20/20 04:10: Sodium 133 L, Potassium 3.9, Chloride 106, Carbon Dioxide 17 L, Anion Gap 10.0, BUN 21 H, Creatinine 0.5 L, Estimated GFR (MDRD) 169, Glucose 78, Calcium 10.1, Magnesium 2.0 10/20/20 04:10: WBC 14.2 H, RBC 2.69 L, Hgb 9.8 L, Hct 30.3 L, MCV 112.6 H, MCH 36.4 H, MCHC 32.3, RDW 19.6 H, Plt Count 248, MPV 11.3, Neut # (Auto) 11.8 H, Lymph # (Auto) 0.9 L, Coryell # (Auto) 1.1 H, Eos # (Auto) 0.1, Baso # (Auto) 0.1, Absolute Nucleated RBC 0.00, Nucleated RBC % 0.0 10/19/20 07:45: PT 18.6 H, INR 1.7 H 10/19/20 07:45: Ammonia 35.3 H 10/19/20 04:00: Vitamin B12 4803 H, Folate 4.40 L 10/19/20 04:00: Sodium 137, Potassium 3.9, Chloride 108, Carbon Dioxide 19 L, Anion Gap 10.0, BUN 23 H, Creatinine 0.6, Estimated GFR (MDRD) 137, Glucose 81, Calcium 11.4 H, Magnesium 2.0, Total Bilirubin 11.1 H, Direct Bilirubin 6.4 H, AST 130 H, ALT 69 H, Alkaline Phosphatase 240 H, Total Protein 6.3 L, Albumin 1.9 L, Globulin 4.4 H 10/19/20 04:00: WBC 14.7 H, RBC 2.68 L, Hgb 9.8 L, Hct 30.0 L, MCV 111.9 H, MCH 36.6 H, MCHC 32.7, RDW 19.9 H, Plt Count 255, MPV 11.8 H, Neut # (Auto) 13.0 H, Lymph # (Auto) 0.7 L, Coryell # (Auto) 0.8, Eos # (Auto) 0.1, Baso # (Auto) 0.1, Absolute Nucleated RBC 0.00, Nucleated RBC % 0.0 10/19/20 00:35: Hgb 10.8 L, Hct 33.0 L 10/18/20 16:03: Sodium 134 L, Potassium 3.8, Chloride 105, Carbon Dioxide 21, Anion Gap 8.0, BUN 22 H, Creatinine 0.6, Estimated GFR (MDRD) 137, Glucose 101 H , Calcium 11.8 H 10/18/20 15:58: Blood Type O NEGATIVE, Antibody Screen NEGATIVE 10/18/20 12:07: POC Whole Bld Glucose 74 10/18/20 04:27: Blood Type Recheck O NEGATIVE 10/18/20 04:27: 25-OH Vitamin D Total 32 10/18/20 04:27: PTH Intact 5 L 10/18/20 04:27: Sodium 136, Potassium 3.9, Chloride 104, Carbon Dioxide 21, Anion Gap 11.0, BUN 22 H, Creatinine 0.5 L, Estimated GFR (MDRD) 169, Glucose 87, Calcium 12.2 H*, Magnesium 2.2, Total Bilirubin 10.2 H, Direct Bilirubin 6.0 H, AST 142 H, ALT 80 H, Alkaline Phosphatase 276 H, Total Protein 6.2 L, Albumin 1.9 L, Globulin 4.3 H 10/18/20 04:27: WBC 14.7 H, RBC 2.86 L, Hgb 10.5 L, Hct 32.0 L, MCV 111.9 H, MCH 36.7 H, MCHC 32.8, RDW 19.9 H, Plt Count 254, MPV 11.7 H, Neut # (Auto) 11.6 H, Lymph # (Auto) 1.5, Coryell # (Auto) 1.4 H, Eos # (Auto) 0.1, Baso # (Auto) 0.1, Absolute Nucleated RBC 0.00, Nucleated RBC % 0.0 10/17/20 14:20: Ethyl Alcohol < 5.0 10/17/20 14:20: PT 17.0 H, INR 1.6 H 10/17/20 14:20: Sodium 132 L, Potassium 4.0, Chloride 98 L, Carbon Dioxide 24, Anion Gap 10.0, BUN 21 H, Creatinine 0.6, Estimated GFR (MDRD) 137, Glucose 100, Calcium 12.6 H*, Total Bilirubin 10.8 H, AST 171 H, ALT 94 H, Alkaline Phospha tase 352 H, Total Protein 7.1, Albumin 2.2 L, Globulin 4.9 H, Albumin/Globulin Ratio 0.4 L, Lipase 20 L 10/17/20 14:20: WBC 16.0 H, RBC 3.20 L, Hgb 11.7 L, Hct 35.9 L, MCV 112.2 H, MCH 36.6 H, MCHC 32.6, RDW 19.4 H, Plt Count 263, MPV 11.5 H, Neut # (Auto) 13.1 H, Lymph # (Auto) 1.2 L, Coryell # (Auto) 1.5 H, Eos # (Auto) 0.1, Baso # (Auto) 0.1, Absolute Nucleated RBC 0.00, Nucleated RBC % 0.0, Manual Slide Review Indicated, Platelet Estimate NORMAL (130-450,000), Platelet Morphology NORMAL APPEARANCE, RBC Morph Micro Appear 1+ TARGET CELLS 10/17/20 13:44: Ammonia 41.3 H Lab results reviewed: Yes Fish Bones: 10/22/20 04:44 10/22/20 04:44 Home Medications and Allergies Home Medications: Ambulatory Orders No Known Home Medications 10/20/20 Active Medications Carboxymethylcellulose (Carboxymethylcellulose Ophth Drops) 1 drops EACHEYE PRN PRN PRN Reason: Dry Eye Last Admin: 10/22/20 05:01 Dose: 1 drops Documented by: Folic Acid (Folic Acid 1 Mg Tablet) 1 mg PO DAILY AYE Last Admin: 10/22/20 08:38 Dose: 1 mg Documented by: Ibuprofen (Ibuprofen 400 Mg Tablet) 400 mg PO Q4HR PRN PRN Reason: Pain 1 to 4 Last Admin: 10/21/20 21:22 Dose: 400 mg Documented by: Morphine Sulfate (Morphine 2 Mg/Ml Carpuject) 1 mg IVP Q2HR PRN PRN Reason: Pain 8 to 10 Last Admin: 10/22/20 05:11 Dose: 1 mg Documented by: Multivitamins (Multivitamin Tablet) 1 tab PO DAILYWM [facility] Last Admin: 10/22/20 08:05 Dose: 1 tab Documented by: Ondansetron HCl (Ondansetron Odt 4 Mg Tablet) 4 mg TL Q6HR PRN PRN Reason: Nausea / Vomiting Polyethylene Glycol (Polyethylene Glycol 3350 17 Gm Packet) 17 gm PO DAILY [facility] Last Admin: 10/22/20 08:38 Dose: Not Given Documented by: Sodium Chloride (Sodium Chloride Flush 0.9% 10 Ml Syringe) 10 ml IVP PRN PRN PRN Reason: NEEDED PER PROVIDER ORDERS Last Admin: 10/22/20 05:11 Dose: 10 ml Documented by: Sodium Chloride (Sodium Chloride Flush 0.9% 10 Ml Syringe) 10 ml IVP 0100,0900,1700 [facility] Last Admin: 10/22/20 08:38 Dose: 10 ml Documented by: Thiamine HCl (Thiamine 100 Mg Tablet) 100 mg PO DAILY [facility] Last Admin: 10/22/20 08:38 Dose: 100 mg Documented by: No Known Home Medications 10/20/20 Allergies/Adverse Reactions: Allergies Allergy/AdvReac Type Severity Reaction Status Date / Time No Known Drug Allergies Allergy Verified 10/17/20 13:48 Anes History & Medical History - Medical History Cardiovascular: reports: None Pulmonary: reports: Asthma Gastrointestinal: reports: None Urinary: reports: None Neuro: reports: None Musculoskeletal: reports: None Endocrine/Autoimmune: reports: None Blood Disorders: reports: None Skin: reports: None Smoking Status: Former smoker History of Cancer?: Yes (probable rectal cancer, metastatic, waiting pathologic confirmation) - Surgical History Eyes Ears Nose Throat (EENT): Other (right ear. Unspecified. During infancy) Exam General: Alert Dental: WNL, Poor dentition Mouth Opening: Greater than 4 Fingerbreadths Neck Mobility: Normal Mallampati classification: II Thyromental Distance: greater than 6 cm Respiratory: Lungs clear, Decreased breath sounds Cardiovascular: Regular rate Plan Anesthesia Type: MAC Consent for Procedure(s) Verified and Reviewed: Yes Code Status: Attempt Resuscitation ASA classification: 3-Severe systemic disease Is this case an emergency?: No
[2020-10-22] MEDS ORDERED: LIDOCAINE 1% 50 ML MDV ONE (10:33)
[2020-10-22] MEDS ORDERED: BUPIVACAINE 0.5%-EPI 1:200000 PF 30 ML VIAL ONE (10:33)
[2020-10-22] MEDS ORDERED: PROPOFOL 200 MG/20 ML VIAL IVP ONE (10:33)
[2020-10-22] MEDS ORDERED: ceFAZolin 1 GM VIAL ONE (11:01)
--- NOTE | 2020-10-22 11:02 | DISCHARGE SUMMARY ---
"Discharge Summary Admit Date: 10/17/20 Discharge Date: 10/22/20 Discharging Provider: Christiano Fortune Primary Care Provider: Aracelis Hess Code Status: Attempt Resuscitation Condition at Discharge: Poor Discharge Disposition: 01 Home, Self Care - DIAGNOSES Admission Diagnoses: Hypercalcemia of malignancy Rectal carcinoma Liver masses Leukocytosis Discharge Diagnoses with Status of Each Condition: Hypercalcemia of malignancy - improved. Rectal carcinoma - ongoing. Ascites - improved. Liver masses - ongoing Bilateral lower extremity edema - stable. Abnormal LFTs - stable. - HPI History of Present Illness: H&P per Dr. Baird: Patient is a 60-year-old male with medical history significant for asthma only who presented to the ED at the request of a sibling because it was noted that he has been jaundiced for the past 2 weeks. Upon presentation he also complained of increased weakness, leg swelling and abdominal pain especially on the right side. He also reports weight loss but is unable to quantify or give a duration. He reports a history of night sweats 2 months ago. He has not been feeling well for the past year and has also experienced difficulty with bowel movements. Work-up in the ED included a CT of the abdomen pelvis which showed: Pulmonary nodules ranging in size from 3mm to 1 cm and were highly suspicious for metastatic disease. There was extensive hepatic metastasis suspected with a dominant mass in the right hepatic lobe measuring up to 11 cm. There was also multifocal low- attenuation, heterogeneous, scattered throughout the liver parenchyma. Hepatomegaly was also noted. There is eccentric hyperenhancing thickening of the rectal wall inferiorly and its middle third. Primary rectal carcinoma was suspected. Ascites was present as well as possible generalized peritoneal carcinomatosis. Furthermore the patient was noted to have a calcium level of 12.6, Total bilirubin of 10.8 and WBC of 16. At bedside the patient was resting comfortably but appears very weak. He denies chest pain but reports some dyspnea and abdominal pain. He mainly indicates pa in in the right upper quadrant and epigastric area. He reports nausea but no vomiting he denies fever or chills. He has significant lower extremity edema and is significantly jaundiced. Patient was presented for admission primarily to address his hypercalcemia. - CONSULTS | PROCEDURES Consultations: General Surgery Procedures: Colonoscopy on October 18: 1. Large circumferential mass 3 to 4 cm above the anal verge. Multiply bi opsied. 2. Masses approximately 5 cm in length, fungating, ulcerated, oozing. 3. Proceeded proximately with retained stool throughout the colon achieve the cecum 4. No occult masses seen neither in the cecum, ascending, transverse, descending nor sigmoid colon's. 5. Rectal mass mid to lower rectum neither obstructing nor partial obstructing and was able to transverse endoscopically without any challenge. 6. Perform multiple biopsies, and cauterization of bleeding and Surgicel placed as well. Subclavian PowerPort placement on October 22 with general surgery. - HOSPITAL COURSE Hospital Course: He was admitted to the floor primarily for the hypercalcemia. His corrected calcium was greater than 14. He was treated with IV fluids and zoledronic acid. His calcium improved over the next 72 hours although it remains elevated when corrected for his hypoalbuminemia at 11.7. This is believed to be secondary to his malignancy. His PTH was decreased as expected. His vitamin D levels were normal. Given he does not have symptoms of hypercalcemia, he is felt stable for discharge. He will ultimately need treatment of his underlying malignancy if he is a candidate for treatment to treat the hypercalcemia. He did undergo colonoscopy with general surgery given the concerns for rectal carcinoma on imaging. Biopsies were obtained and pathology is pending. A paracentesis was performed on October 21 with 5.8 L of peritoneal fluid removed. This was sent for cytology and studies. This did not appear infected. There were only 80 WBCs and 4% neutrophils. Gram stain is negative for bacteria. Cytology is pending. Dr. Cullen of general surgery did speak with oncology and Mediport placement was recommended which was performed that day of discharge. The patient will follow up with his new primary care provider tomorrow at 3 PM and he will need urgent oncology referral. I did speak with oncology here at the [facility] and they would like to see him early next week. An appointment cannot be arranged to given the need for referral and insurance authorization. His LFTs are elevated with a T bili in the 10s. This has been stable. This is secondary to his liver metastasis. There was no evidence of cirrhosis on imaging. It is suspected that his lower extremity edema may be due to IVC compression. He was not discharged on Lasix to prevent hypovolemia which can exacerbate his hypercalcemia. We did obtain duplex of his lower extremities which was negative for DVT. I did discharge him with oxycodone to take as needed for pain. I also spoke with Cherie Gonzalez of palliative care and she will be following up with his primary care provider to arrange outpatient follow-up with palliative. - ALLERGIES Allergies/Adverse Reactions: Allergies Allergy/AdvReac Type Severity Reaction Status Date / Time No Known Drug Allergies Allergy Verified 10/17/20 13:48 - MEDICATIONS Home Medications: Ambulatory Orders Medication Instructions Recorded Confirmed Folic Acid 1 mg PO DAILY #30 tablet 10/22/20 Multivitamin [Theragran] 1 tab PO DAILYWM #30 tablet 10/22/20 oxyCODONE [Roxicodone] 5 mg PO Q6H PRN #30 tablet 10/22/20 - PHYSICAL EXAM AT DISCHARGE General Appearance: positive: Alert Eyes Bilateral: positive: Normal inspection, Other (Scleral icterus.) ENT: positive: ENT inspection nml Neck: positive: Nml inspection Respiratory: positive: No respiratory distress, Other (Left chest wall Mediport noted.). negative: Wheezes, Rales Cardiovascular: positive: Regular rate & rhythm. negative: Tachycardia, Systolic murmur Abdomen: positive: Hepatomegaly. negative: No distention (Abdomen is distended but improved after paracentesis.), Tenderness, Guarding, Rebound Skin: positive: Warm, Dry, Other (Jaundiced.) Extremities: positive: Pedal edema (+3 pitting edema in the bilateral lower extremities up to the abdomen.) Neurologic/Psychiatric: positive: Motor nml. negative: Disoriented to person, Disoriented to place Physical Exam Other/Comments: Vital Signs - 24 hr 10/21/20 10/21/20 10/21/20 14:45 15:00 15:40 Temperature Heart Rate [ 93 93 Brachial] Respiratory 22 20 Rate Blood Pressure 107/67 98/60 113/64 [Right Brachial artery] O2 Saturation 98 10/21/20 10/21/20 10/21/20 17:00 20:17 21:24 Temperature 36.6 C 36.5 C Heart Rate [ 92 88 Brachial] Respiratory 20 20 Rate Blood Pressure 110/64 101/55 L 99/60 [Right Brachial artery] O2 Saturation 96 98 10/21/20 10/22/20 10/22/20 23:37 04:48 04:50 Temperature 36.4 C L 36.5 C 36.5 C Heart Rate [ 84 78 80 Brachial] Respiratory 18 16 18 Rate Blood Pressure 104/60 101/60 102/61 [Right Brachial artery] O2 Saturation 95 97 97 10/22/20 07:47 Temperature 36.4 C L Heart Rate [ 82 Brachial] Respiratory 14 Rate Blood Pressure 100/65 [Right Brachial artery] O2 Saturation 98 Oxygen O2 Source Room air - LABS Result Diagrams: 10/22/20 04:44 10/22/20 04:44 - DIAGNOSTIC IMAGING Diagnostic Imaging Results: Final report reviewed - FOLLOW UP Follow Up: He will follow up with his new primary care provider on October 23 at 3 PM. He will need an urgent referral to oncology. Palliative care will be seeing him on an outpatient basis. - TIME SPENT Time Spent in Discharge (Minutes): 36"
[2020-10-22] MEDS ORDERED: BUPIVACAINE 0.5%-EPI 1:200000 PF 30 ML VIAL SUBQ ONE (11:03)
[2020-10-22] MEDS ORDERED: LIDOCAINE 1% 50 ML MDV SUBQ ONE (11:03)
--- NOTE | 2020-10-22 11:15 | OPERATIVE REPORT ---
Operative Report - General Admit Date: 10/19/20 Procedure Date: 10/22/20 Planned Procedure: Left subclavian PowerPort placement Pre-Op Diagnosis: Metastatic cancer Procedure Performed: Left subclavian PowerPort placement Post Op Diagnosis: Same - Procedure Note Primary Surgeon: [place] Anesthesia Provider: BRIANNE Bey Anesthesia Technique: MAC Estimated Blood Loss (mL): 5 Findings: Port in good position Complications: None apparent - Other Other Information/Narrative: After obtaining informed consent, the patient is brought to the operating room and placed in supine position on the operating table. Following successful induction of sedation with monitored anesthesia care and appropriate padding of all bony prominences, the left chest and neck were prepped and draped in the s tandard surgical fashion. A timeout was held per scope protocol. All elements of the surgical safety checklist were followed before, during, and after the procedure. Following infiltration with local anesthetic to create a field block, the left subclavian vein was accessed in the deltopectoral groove. The J-wire was gently placed into the vein. Fluoroscopy was used to confirm the position of the wire and in the subclavian vein. We anesthetized the existing healed scar in the area around it for placement of the port itself. An incision was created here and carried down through the skin and subcutaneous tissue. A pocket was created with blunt dissection. The port tubing was attached to the tunneling device and passed from the access site of the vein into the pocket. It was trimmed to an appropriate length and the port attached. The port was sewn into place in the pocket. The dilator and introducer were then passed over the J-wire that was in the subclavian vein. The J-wire and dilator were removed leaving only the introducer. The tubing was then passed through the introducer and the introducer cracked and removed per digital sales director's directions. The port was then checked for function and flushed and basia easily. Additional local anesthetic was applied to the chest wall. The port pocket was closed with interrupted Vicryl sutures and Monocryl stitches were placed in both skin incision sites. All sponge, needle, and instrument counts were correct at the conclusion of the case. Chest x-ray in the postanesthesia care unit revealed the port in good position in the superior vena cava without evidence of pneumothorax.
[2020-10-22] MEDS ORDERED: PHENYLEPHRINE 10 MG/ML VIAL ONE (11:22)
--- NOTE | 2020-10-22 11:35 | XRAY Report ---
PROCEDURE: OR C-Arm Procedure INDICATIONS: JORGE CATH TECHNIQUE: Single view COMPARISON: None. FINDINGS: Single spot fluoroscopic intraoperative images demonstrating catheter projecting in the region of the left subclavian vein although recommend correlation to real-time observations. Reviewed by: Will Santiago MD on 10/22/2020 11:34 AM [facility] Approved by: Will Santiago MD on 10/22/2020 11:34 AM [facility] Station ID: [id number]
--- NOTE | 2020-10-22 11:38 | XRAY Report ---
PROCEDURE: Chest for Line Placement INDICATIONS: Port placment TECHNIQUE: One view of the chest was acquired. COMPARISON: None. FINDINGS: Surgical changes and devices: Left chest port is noted with the tip projecting in the lower SVC.. Lungs and pleura: No pleural effusions or pneumothorax. Lungs are clear. Lung volumes are decrease d. Mediastinum: Mediastinal contours appear normal. Heart size is normal. Bones and chest wall: No suspicious bony lesions. Overlying soft tissues appear unremarkable. IMPRESSION: Left chest port with the tip projecting in the lower SVC. Reviewed by: Will Santiago MD on 10/22/2020 11:37 AM PST Approved by: Will Santiago MD on 10/22/2020 11:37 AM PST Station ID: [id number]
[2020-10-22 13:22] VITALS: BP 110/62
--- NOTE | 2020-10-22 14:21 | ANESTHESIA POST OP EVALUATION ---
Anesthesia Post Eval - Post Anesthesia Eval Vitals: Last Vital Signs Temp 36.5 C 10/22/20 12:15 Pulse 81 10/22/20 12:15 Resp 16 10/22/20 12:15 BP 110/62 10/22/20 13:20 Pulse Ox 99 10/22/20 12:15 CV Function Including HR & BP: positive: Stable Pain Control: positive: Satisfactory Nausea & Vomiting: positive: Negative Mental Status: positive: Baseline Respiratory Status: Airway Patent Hydration Status: Satisfactory Anesthesia Complications: positive: None
== END 2020-10-22 15:00 | disposition home or self-care (01) | DRG 375 ==
LOC: ED 13:44 → MS3 18:22 → OBSVTOIN 10-19 10:21 → MS2 10-20 17:27
PROVIDERS: ADMIT Internal Medicine; ATTEND Internal Medicine
PROC: 0DBP8ZX Excision of Rectum, Via Natural or Artificial Opening Endoscopic, Diagnostic (ICD-10-PCS; principal; 2020-10-18 12:00)
PROC: 0W9G3ZX Drainage of Peritoneal Cavity, Percutaneous Approach, Diagnostic (ICD-10-PCS; 2020-10-21)
PROC: 0JH63WZ Insertion of Totally Implantable Vascular Access Device into Chest Subcutaneous Tissue and Fascia, Percutaneous Approach (ICD-10-PCS; 2020-10-22)
PROC: 02HV33Z Insertion of Infusion Device into Superior Vena Cava, Percutaneous Approach (ICD-10-PCS; 2020-10-22)
DX: C20 Malignant neoplasm of rectum (principal); C78.7 Secondary malignant neoplasm of liver and intrahepatic bile duct; C78.6 Secondary malignant neoplasm of retroperitoneum and peritoneum; C78.01 Secondary malignant neoplasm of right lung; I87.1 Compression of vein; F10.10 Alcohol abuse, uncomplicated; J45.909 Unspecified asthma, uncomplicated; Z87.891 Personal history of nicotine dependence; Z80.0 Family history of malignant neoplasm of digestive organs
CPT/HCPCS: 0202U; 36415; 36430; 71045; 74177; 76705; 80048; 80053; 80076; 80320; 81003; 81599; 82140; 82306; 82607; 82746; 83519; 83615; 83690; 83735; 83970; 85014; 85018; 85025; 85610; 86850; 86900; 86901; 87070; 87205; 89051; 93970; 96361; 96365; 96372; 96375; 96376; 99284; 99285; A9270; C1788; G0378; J1650; J3489; P9017; P9047; Q9967; 81001; 87086

== ENCOUNTER 2020-11-01 10:15 | Outpatient (CLI) | payer MEDICAID ==
--- NOTE | 2020-11-01 16:21 | CONSULTATION NOTE ---
Palliative Care Consultation - Referral Referring Provider: Aracelis ALLEN Time of Visit: 6028-4655 Referral setting: Home Referral Reason: Met Rectal CA/Goals of care/FTT - Information Sources Records reviewed: Previous records reviewed History/Review of Systems obtained from: Patient, Family (sister present; provided most of history as well as records) Exam limitations: Clinical condition (patient lethargic; drifting in and out) - History of Present Illness Brief History of Present Illness: This is an unfortunate 60-year-old gentleman who presents today with metastatic rectal cancer involving liver, lungs, with peritoneal carcinomatosis. He presents is jaundiced, drifting in and out of awareness, large ascitic abdomen, with palpable mass right side. Patient also presents with scrotal swelling, pitting edema in the legs thighs and sacrum, and fluid sac of the size of a grapefruit over left scapula and back. Patient denies any pain at time of visit, has not taken any oxycodone for couple days, did take some baclofen yesterday with resolution of hiccups. Hiccups have been fairly persistent. Pat ient has not been eating or drinking, mouth is dry, lips are peeling. Patient denies nausea. Did assist patient up during visit, bowels moved stools were brown. Patient very unsteady on feet, became breathless, and and safe fall risk. Patient had been feeling poorly for about a year, increased trouble with defecating and urinating. He had been declining as far as his health, but because of the pandemic, his family had not seen him much. Patient did get furloughed from job, family finally convinced him to come into the emergency room on 10/17, where he would was worked up and found to have extensive hepatic mets, rectal cancer, anasarca, and ascites. Patient actually had presented with hypercalcemia, does have a history of alcohol use, did receive biopsy here on his admit. His colonoscopy procedure reported a large circumferential mass 3 to 4 cm above the anal verge, with 5 cm in length fungating and ulcerated oozing. Patient unable to really tell me his understanding of his current disease process, reliant on Roxy his sister, family is mostly in shock, but has seen patient continued to deteriorate fairly quickly over the last few weeks and now more acutely over the last few days. Patient had been seeking treatment options, he has been meeting with his merchant miller Father Cristian, unfortunately we did have have to have a conversation regarding end-of-life goals. Patient was given the option of hospitalization and consideration of further intervention/stenting versus focusing on comfort and being home. Discussed also the caveat may in hospital, and be back to the same decision a few days from now. Patient had verbalized both to myself and to the home health nurse yesterday Roxy Ortega his sister who is present is to be his DPOA. There are 12 total children, one of his brothers lives with him, as well as a nephew. Patient did express wishes to be "at peace". We did discuss this means transition to hospice team, and focus on comfort. Patient was able to participate at some level of the POLST, decision was made for DNR and comfort care. He was appropriately tearful through the conversation, but unable to ask specific questions. We did revisit his decision several times through the visit, to the satisfaction of his sister as best we know his choice. Medical/Surgical History - Past Medical History Cardiovascular: reports: None Respiratory: reports: Asthma Neuro: None Endocrine/Autoimmune: reports: None GI: reports: Other (Rectal CA) : reports: Incontinence HEENT: reports: None Psych: reports: Depression, Anxiety Musculoskeletal: reports: None Derm: reports: None MRSA Hx?: No - Past Surgical History General: reports: Colonoscopy, EGD HEENT: reports: Other - Substance History Use: Uses substance without health or social issues: Tobacco (hx 2 packs a day for 15 years), Alcohol Social History - Living Situation Living arrangement: At home Living Situation: With family Support System: Patient lives in a trailer, his brother and nephew live with him. 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 Patient has been without insurance, this is been one of his barriers for accessing care. One of his sisters lives next door, [place], but has had limited contact as she cares for her son with cerebral palsy and quarantining. Previous to this he would visit daily his nephew. His Sister Roxy who is here to provide caregiving, has a history of working for [employer] [facility], as an REHABILITATION INSPECTOR. She cared for her mother who on [facility] hosp[facility] in 2016, who passed of colon cancer. She is also cared for other siblings who have since passed. Her in 2011, a difficult . She is aware of what to expect, but could use support as this was her favorite brother. Family History - Family History Family History: Mother: (pulm fibrosis), Cancer (colon cancer), Father: Medications/Allergies - Medications Home Medications: Ambulatory Orders Medication Instructions Recorded Confirmed Folic Acid 1 mg PO DAILY #30 tablet 10/22/20 11/01/20 oxyCODONE [Roxicodone] 5 mg PO Q6H PRN #30 tablet 10/22/20 10/30/20 Baclofen [Lioresal] 10 mg PO TID 10/30/20 11/01/20 Megestrol Acetate [Megace Es] 800 mg PO DAILY 10/30/20 11/01/20 Haloperidol Oral Soln [Haldol Oral 1 mg PO Q6HR PRN 11/01/20 11/01/20 Soln] Hyoscyamine [Levsin] 0.125 mg PO Q4HR PRN MDD titrate 11/01/20 11/01/20 to 2 tabs prn LORazepam [Ativan] 0.5 mg PO Q6HR PRN 11/01/20 11/01/20 Morphine Sulfate [Morphine Sulf 5 mg PO Q4HR PRN 11/01/20 11/01/20 Oral (Roxanol)] - Allergies Allergies/Adverse Reactions: Allergies Allergy/AdvReac Type Severity Reaction Status Date / Time No Known Drug Allergies Allergy Verified 10/30/20 12:37 Review of Systems - Constitutional Constitutional: reports: Fatigue, Weakness, Poor appetite (no intake but sips last 24 hours; cachetic), Weight loss (wasting; weight gain fluid fluctuating). denies: Fever - Ears, Nose & Throat Ears, Nose & Throat: reports: Dry mouth - Cardiovascular Cardiovascular: reports: Edema, Decr. exercise tolerance - Respiratory Respiratory: reports: SOB with exertion. denies: Cough - Gastrointestinal Gastrointestinal: reports: Abdominal distention, Bloating, Poor appetite. denies: Constipation (moved bowels soft brown but with severe discomfort), Nausea - Genitourinary Genitourinary: reports: Incontinence - Musculoskeletal Musculoskeletal: reports: Stiffness, Limited range of motion, Muscle weakness, Assistive devices (has walker; hospital bed and commode; max bed assist and two person transfer) - Integumentary Integumentary: reports: Dryness, Other (blisters on LE) - Neurological Neurological: reports: General weakness, Memory problems, Incoordination, Slurred speech - Psychiatric Psychiatric: reports: Depression. denies: Aggitation - All Other Systems All Other Systems: reports: Other (limited ability of patietn to participate; AMS) Physical Exam - Vital Signs Temperature: 96.7 C Pulse Rate: 92 Respiratory Rate: 16 O2 Saturation: 98 Blood Pressure: 102/58 - Physical Exam General Appearance: positive: Mild distress, Lethargic, Cachetic Eyes Bilateral: positive: Other (scleral icterus) ENT: positive: Dry mucous membranes, Other (lips peeling) Neck: positive: Trachea midline Cardiovascular: positive: Tachycardia Respiratory: positive: No respiratory distress, Diminished in bases. negative: Wheezes, Rales, Rhonchi Abdomen: positive: Mass (right side "ridge"), Distended, Taut Skin: positive: Other (right side paracentisis site; leaking on and off). negative: Pressure wound Extremities: positive: Pedal edema (up to sacrum) Neurologic/Psychiatric: positive: Disoriented to time, Weakness, Slurred/abnml speech, Flat affect Palliative Care - POLST Patient has POLST: Yes POLST Status: DNR, Comfort Measures (completed with patient and sister see above note) Pain: No pain Performance Status: Patient has been experiencing declining functional status, at visit today was to maximum person assist for transfers, patient somehow able to ambulate to the bathroom. Needed a right back. No insight into current condition, thankfully in hospital bed, has commode, turn sheets, and rolling walker. - Palliative Care Discussion: Sister struggling with watching patient deteriorate. Had said he wanted to be full code and go for it, but today when discussed current condition, reports he is at peace and is quite tearful through this conversation. Did reapproach his multiple times, in the context would need to send him to the hospital for further evaluation and possible stent placement or focus on comfort and transition to hospice. Patient most likely not understanding the nuances, but is aware at this point in time will be transitioning to hospice. Patient has worked in healthcare, is familiar with palliative and hospice care. Sister reports patient has had father Cristian come by several times, does have strong hoa. Roxy did not like to make the decision for him, but does not want to perform CPR if he were to pass. She asked them this also, we are both in agreement patient understands enough to move forward with DN AR, comfort measures and hospice care. She has talked to her other siblings, they have not formalized the DPOA, but both myself and home health nurse yesterday, did witness patient request to have Roxy speak for him if he is unable to speak for himself. Patient given the severity of his illness, most likely would not be a candidate for any treatment, has had ongoing functional decline, is quite jaundiced, and prognosis most likely hours to days, vs weeks to months. Results - Lab Results Lab results reviewed: Yes Lab and Imaging Results: Labs from 1 5, WBC 18.2, hemoglobin 12.1, hematocrit 36.1, creatinine 1.6, bilirubin 13.8, albumin 2.0, CEA greater than 10,000. Impression and Recommendations - Palliative Care Impression: This is a 60-year-old gentleman who presents with worsening status, with lethargy, altered mental status, jaundice, severe ascites, anasarca, declining functional status and poor prognosis regarding his rectal CA with liver mets. Patient continues with acute decline, discussion is best able in the context of his current mental status with support from sister, decision made to transition to hospice for comfort care. Recommendations/Counseling Done: 1. Rectal CA with liver mets. Patient has seen oncology, given patient's poor performance status, worsening liver function, Most likely is not going to be a candidate for any cytotoxic chemotherapy. Patient is pending GI for biliary stent placement, discussion regarding acute hospitalization, unable to wait longer if this is his choice. Patient reports he is "at peace", decision to be made to stay at home, will transition for hospice support. 2. Cachexia. Patient did try Megace, continues to take only sips of fluid, denies nausea with this. Patient very lethargic, increasing trouble swallowing pills, large ascitic belly with early satiety. Encourage sister for fluids and sips for comfort focused feeding. 3. Muscle weakness. Patient has anasarca, very difficult for any kind of bed mobility or ambulation. Patient is quite weak is in hospital bed, is a maximum 2 person assist. 4. Advanced care planning. Sister was concerned patient was going to pass last night, she does want to honor his wishes, we did spend quite a bit of time given his altered mental status, to try and elicit what was most important. He does report he is at "at peace, we did discuss transition to hospice, versus hospitalization. He is quite tearful but was in agreement for hospice team. Also confirmed DPOA to be Roxy Jaquez his sister, and able to get signed paperwork. Patient does have significant number of siblings, and no living parents. Hospice unable to admit until Thursday night, will go ahead and order comfort medications. Sister Roxy is familiar with these, will feel more secure having is available if needed. The patient does appear quite comfortable and n ot in any distress. Time Spent: 90 minutes with greater than 50% of this done in counseling regarding goals of care, coordination of care with hospice and home health, and anticipatory guidance with sister. Ordered comfort medications at [facility], to include haldol, hyoscyamine, lorazepam, and morphine
== END 2020-11-01 10:16 | disposition home or self-care (01) ==
LOC: PC 10:15
PROVIDERS: ATTEND Nurse Practitioner Adult Health
DX: Z51.5 Encounter for palliative care (principal); C20 Malignant neoplasm of rectum; C78.7 Secondary malignant neoplasm of liver and intrahepatic bile duct; C78.02 Secondary malignant neoplasm of left lung; C78.01 Secondary malignant neoplasm of right lung; C78.6 Secondary malignant neoplasm of retroperitoneum and peritoneum; R64 Cachexia; R18.8 Other ascites; M62.81 Muscle weakness (generalized); Z66 Do not resuscitate
CPT/HCPCS: 99345